=== PATIENT | female | born 1965 | race Caucasian/White ===

== ENCOUNTER 2022-02-25 21:34 | Emergency (ER) | payer BC, SELFPAY ==
[2022-02-25 21:35] VITALS: BP 148/91; PULSE 90; PULSE 97; RESP 16; TEMP 36.4; O2SAT 95; BMI 29.5
--- NOTE | 2022-02-25 22:35 | ED.VIS.LOWEX ---
HPI History of Present Illness Chief Complaint: Laceration Informant: patient Narrative Narrative: Patient had a piece of carolina hit her hill. She has a triangular-shaped skin tear across the anterior right hill. Tetanus is up-to-date. No active bleeding. This just happened this evening. Dressing made it better nothing makes it worse. No other injury. PFSH PFSH Allergy/AdvReac Type Severity Reaction Status Date / Time No Known Allergies Allergy Verified 02/25/22 21:42 Social History Smoking Status: Never smoker ROS ROS ED Gastrointestinal Gastrointestinal: Denies nausea or vomiting Integumentary Reports Abrasions and other Details: See HPI Neurologic Neurologic: Denies paresthesias or weakness Hematologic/Lymphatic Hematologic/Lymphatic: Denies easy bleeding or easy bruising Allergic/Immunologic Allergic/Immunologic ED: Denies urticaria EXAM Physical Exam Const Vital Signs: 02/25/22 21:35 02/25/22 21:35 Temperature 97.6 F L 97.6 F L Temperature Source Temporal Temporal Pulse Rate 90 97 Respiratory Rate 16 16 Blood Pressure 148/91 H 148/91 H Blood Pressure Mean 110 110 Pulse Ox 95 95 Oxygen Delivery Method Room Air Room Air Positive well nourished and well developed General Appearance ED: well developed HEENT Negative for trauma Resp normal respiratory effort Extremity Extremity Narrative: Patient has a V shaped skin tear on the right anterior hill. Total length of this is about 8 cm. But the skin is very thin at the edges. No active bleeding. Neuro Sensorium / Orientation: alert Psych mental status grossly normal Skin Skin Narrative: See above MDM MDM MDM Narrative Medical decision making narrative: Patient really has a skin tear to the hill. If this would be sutured, the edges would tear at each stitch most likely. I think this would worsen the outcome. We will irrigate this and clean it again. We will float the flap as close as we can to the edges and apply nonadherent bacitracin type dressing. Discharge Plan Triage Chief Complaint: Laceration ED Provider: Ted Machado Dx/Rx/DC Orders Clinical Impression: Skin tear of right lower leg without complication Instructions: ED Skin Avulsion Primary Care Provider: Care Physician,No Primary Referrals: Rajesh Laura MD [Med Staff - Active Staff] - 1 Week if not improving Care Physician,No Primary [Primary Care Provider] - Disposition Disposition: Home, Self Care
[2022-02-25 23:21] VITALS: BP 132/88; PULSE 78; RESP 16; O2SAT 97
== END 2022-02-25 23:24 | disposition home or self-care (01) ==
PROVIDERS: Emergency Provider Emergency Medicine; Visit Provider Emergency Medicine
DX: S81.811A Laceration without foreign body, right lower leg, initial encounter (principal); W26.8XXA Contact with other sharp object(s), not elsewhere classified, initial encounter
CPT/HCPCS: 99282

== ENCOUNTER 2022-03-11 10:39 | Emergency (ER) | payer BC, SELFPAY ==
[2022-03-11 10:42] VITALS: BP 148/82; PULSE 86; RESP 17; TEMP 37.2; O2SAT 95; BMI 31.8
--- NOTE | 2022-03-11 11:03 | EX.ED.DYSGE1 ---
HPI <SHRUTHI Banks - Last Filed: 03/11/22 12:25> History of Present Illness Chief Complaint: Wound Narrative Narrative: 56-year-old female has a skin tear on her right hill from a piece of carolina that struck her leg on February 25. She was seen here and it was dressed with bacitracin. Over the last 4 days it become red, painful, and had odorous drainage. No fever or chills. She is not diabetic. PFSH <SHRUTHI Banks - Last Filed: 03/11/22 12:25> [facility] Medical History (Updated 03/11/22 @ 12:[address] Bernabe Damico MD) Asthma Home Medications clindamycin HCl 150 mg capsule 450 mg PO TID 7 days #63 caps 03/11/22 [Rx Last Taken Unknown] Allergy/AdvReac Type Severity Reaction Status Date / Time No Known Allergies Allergy Verified 02/25/22 21:42 Social History Smoking Status: Never smoker ROS <SHRUTHI Banks - Last Filed: 03/11/22 12:25> ROS ED ROS Narrative Constitutional: Negative for fever, chills, malaise. Eyes: Negative for visual change. ENT: Negative for sore throat, ear pain, rhinorrhea. CVS: Negative for palpitations, chest pain, syncope. Respiratory: Negative for shortness of breath, cough, orthopnea. GI: Negative for abdominal pain, nausea, vomiting, diarrhea, constipation, melena, hematochezia. : Negative for dysuria, hematuria or frequency. Neuro: Negative for headache, motor/sensory dysfunction. Skin: Negative for rash, abscess, or wound. Musc: Negative for joint pain, swelling, trauma. Heme: Negative for easy bruising, bleeding, lymphadenopathy. EXAM <SHRUTHI Banks Last Filed: 03/11/22 12:25> Physical Exam Narrative Exam Narrative: CONST: Patient sitting in no acute distress. EYES: Normal inspection. ENT: Normal inspection, moist mucous membranes. NECK: Normal inspection. RESP: No respiratory distress, CTAB. CVS: Regular rate and rhythm, no murmur, no gallop. SKIN: 5 cm triangular-shaped skin tear right lower hill with purulent drainage and surrounding erythema. No fluctuance or expressible drainage with palpation. EXTREMITIES: Normal appearance, full ROM, 2+ DP pulses. NEURO: Oriented x4. PSYCH: Normal affect. Const Vital Signs: 03/11/22 10:42 Temperature 98.9 F Temperature Source Oral Pulse Rate 86 Respiratory Rate 17 Blood Pressure 148/82 H Blood Pressure Mean 104 Pulse Ox 95 Oxygen Delivery Method Room Air <Dr. Bernabe Damico MD - Last Filed: 03/11/22 12:50> Physical Exam Const Vital Signs: 03/11/22 10:42 Temperature 98.9 F Temperature Source Oral Pulse Rate 86 Respiratory Rate 17 Blood Pressure 148/82 H Blood Pressure Mean 104 Pulse Ox 95 Oxygen Delivery Method Room Air MDM <SHRUTHI Banks - Last Filed: 03/11/22 12:25> [facility] Narrative Medical decision making narrative: Patient sustained a skin tear to her right hill 2 weeks ago. Over the last 4 days it became infected. There is a 5 cm skin tear with some purulent foul-smelling drainage and surrounding erythema. There is no expressible drainage or indication for I&D. Extremity is neurovascularly intact. X-rays negative. She will be started on clindamycin and referred to the wound center. Return if symptoms worsen. Radiography Diagnostic Testing: Clinical Impression(s) from Imaging Studies Tibia/Fibula X-Ray 03/11/22 11:48 IMPRESSION: No evidence of osteomyelitis. Electronically Signed: Mirta Koehler MD at 12:03 EDT , ED attending interpretation of right tibia/fibula shows no fracture or dislocation, no evidence of osteomyelitis. <Dr. Bernabe Damico MD - Last Filed: 03/11/22 12:50> [facility] Radiography Diagnostic Testing: Clinical Impression(s) from Imaging Studies Tibia/Fibula X-Ray 03/11/22 11:48 IMPRESSION: No evidence of osteomyelitis. Electronically Signed: Mirta Koehler MD at 12:03 EDT , Treatment and Re-Evaluation Narrative: Seen and evaluated independently and in conjunction with physician nurse assistant. Agree with notes above unless documented otherwise. By the looks of the pictures patient took, this appeared to be a skin tear 2 weeks ago. It appears to have gradually become more red and swollen and painful suggesting infection. There is no abscess at this time. It is still healing by secondary intent. There were a lot of Steri-Strips across it which are now removed. We discussed dressing changes, antibiotics, outpatient follow-up with the wound center. I do not see anything that appears to need debridement at this time. Discharge Plan Triage Chief Complaint: Wound ED Midlevel Provider: Simona [place] ED Provider: Bernabe Damico Dx/Rx/DC Orders Clinical Impression: Unspecified open wound, right lower leg, subsequent encounter, Cellulitis of right anterior lower leg Instructions: ED Wound Check (Infection) Prescriptions: New clindamycin HCl 150 mg capsule 450 mg PO TID 7 Days Qty: 63 0RF Primary Care Provider: Eliane Anand,Out of Referrals: Eliane Anand,Out of [Primary Care Provider] - Center,Wound [Non-Staff] - Activity Restrictions/Additional Instructions: Take the antibiotics and keep clean and dry. I would not put the Steri-Strips on it. I would put bacitracin and a nonstick bandage. Call the wound center for follow-up. Disposition Disposition: Home, Self Care
--- NOTE | 2022-03-11 11:48 | RAD_ITS ---
STUDY: X-RAY - RIGHT TIBIA AND FIBULA REASON FOR EXAM: Female, 56 years old. Right leg wound TECHNIQUE: 2 view(s) of the tibia and fibula were obtained. COMPARISON: None. FINDINGS: Normal visualized tibia. Normal visualized fibula. There is a soft tissue defect ventral to the mid tibia consistent with known wound. RAD/Tibia & Fibula 2 Views IMPRESSION: No evidence of osteomyelitis. Electronically Signed: Mirta Koehler MD at 12:03 EDT ,
[2022-03-11] MEDS: Clindamycin HCl 150 MG Capsule 450 MG PO (12:55)
== END 2022-03-11 12:58 | disposition home or self-care (01) ==
PROVIDERS: Emergency Provider Emergency Medicine; Visit Provider Emergency Medicine
DX: S81.801A Unspecified open wound, right lower leg, initial encounter (principal); W22.8XXA Striking against or struck by other objects, initial encounter; L03.115 Cellulitis of right lower limb
CPT/HCPCS: 73590; 99283

== ENCOUNTER 2022-03-18 07:49 | Outpatient (RCR) | payer BC, SELFPAY ==
[2022-03-18 08:08] VITALS: BP 131/83; PULSE 77; RESP 18; TEMP 36.3
--- NOTE | 2022-03-18 10:55 | PCM.WC.HP ---
History of Present Illness Date of Service: 03/18/22 Chief Complaint: chronic wound right hill s/p traumatic skin tear History of Wound: Hilda is a pleasant 56 yo woman that presents to the wound healing center for evaluation and treatment of a nonhealing wound of her right hill. She struck her leg against a piece of [place]ol[place] and this gave her a triangular tear of her skin of her right hill on February 25, 2022. She was seen at the ER and the skin flap was approximated as best as possible to the edges and steri-stripped as stitches were not likely to hold or be helpful. She returned to the ER on 03/11/22 due to increased pain and erythema with steristrips in place and purulent drainage. ER physician removed steristrips and she was started on Clindamycin and has been dressing the wound with bacitracin and Telfa dressings. The ER referred her to the wound center for further treatment. She has recently moved from [place] to [place] and does not currently have a PCP in this area yet. 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 She does not take any medications currently. She denies fever, chills, increased drainage, erythema. Hisory difficult due to her hearing impairment. [facility] Medical History Asthma Home Medications clindamycin HCl 150 mg capsule 450 mg PO TID 7 days #63 caps 03/11/22 [Rx Last Taken Unknown] Allergy/AdvReac Type Severity Reaction Status Date / Time No Known Allergies Allergy Verified 02/25/22 21:42 Social History Smoking Status: Never smoker ROS Constitutional Constitutional: Denies chills, fatigue or fever(s) Eyes Eyes: Denies blurry vision, change in vision or loss of vision ENT HEENT: Denies dysphagia, hearing loss or sore throat Cardiovascular Cardiovascular: Denies chest pain, edema or palpitations Respiratory/Chest Respiratory/Chest: Denies dry cough, dyspnea, dyspnea on exertion, productive cough or wheezing Gastrointestinal Gastrointestinal: Denies diarrhea, nausea or vomiting Genitourinary Genitourinary: Denies dysuria or polyuria Musculoskeletal Musculoskeletal: Denies arthralgias, joint stiffness or muscle weakness Integumentary Integumentary: Reports erythema and wounds Neurologic Neurologic: Denies dizziness, memory loss or weakness Psychiatric Psychiatric: Denies homicidal ideation or suicidal ideation Endocrine Endocrinology: Denies polydipsia, polyphagia or polyuria Hematologic/Lymphatic Hematologic/Lymphatic: Denies easy bleeding or easy bruising Allergic/Immunologic Allergic/Immunologic: Denies throat swelling, tongue swelling or urticaria Vital Signs Vital Signs Vital Signs: 03/18/22 08:08 Temperature 97.4 F L Temperature Source Temporal Pulse Rate 77 Respiratory Rate 18 Blood Pressure 131/83 H Blood Pressure Mean 99 Blood Pressure Source Monitor Physical Exam Const alert, oriented x3 and no apparent distress General Appearance: cooperative and comfortable HEENT normocephalic and head/scalp atraumatic Resp normal respiratory effort Effort and Inspection: able to speak in complete sentences Cardio regular rate and regular rhythm Skin Wounds: wounds noted Wound Narrative: as in clinical panel Psych mental status grossly normal, thought process normal, cooperative and affect normal Debridement Note Debridement Note Wound debrided: right hill Laterality: Right Type of Debridement: Excisional debridement Anesthesia Used: 4% Lidocaine Solution and 5% Lidocaine Gel Depth: Down to and including healthy tissue and in the subcutaneous layer Percentage of wound debrided: 100 Instrument Used: #15 blade and Forceps Tissue Removed: Yellow slough, devitalized tissue Severity: Fat Layer Exposed Amount of bleeding with debridement: Mild Bleeding Controlled with: Compression and gauze Patient tolerated procedure: Patient tolerated procedure well Post-Debridement Measurements and Additional Note: Post-Debridement Measurements/Treatment - Nurse 1 - General Ulcer Assessment Start: 03/18/22 07:50 Freq: Status: Active Protocol: TAMMY.ALIDA Activity Type Activity Date Activity User E-sign Co-sign Detail Recorded Client Recorded Date Recorded By Document 03/18/22 08:08 [id number] 03/18/22 08:18 ARIAS 03/18/22 08:08 - Today's Visit Information Type of service Initial Visit Arrival Mode Ambulatory Transfer Assistance None Patient Identification Verified (Name & Yes ) Patient Requires Transmission-Based No Precautions Vital Signs Temperature (97.8 F-99.1 F) 97.4 F L Temperature Source Temporal Pulse Rate (60-100) 77 Pulse Location Monitor Respiratory Rate (12-18) 18 Respiratory rate source Observation Blood Pressure (90/60-120/80) 131/83 H Blood Pressure Mean 99 Source Monitor History Since Last Visit- (Skip if this is Patient's initial visit) Have you been in the hospital since your No last visit? Pain Scale: 0-10 Numeric Is Patient Pain Free? 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 Able to Read Yes Able to Write Yes Communication Tools Lip Movement/ Reading Right Hearing Abillity Deaf Left Hearing Abillity Deaf Visual Assistive Devices Glasses Teaching Assessment Preferences Verbal,Written, Demonstration Barriers to Learning None Readiness To Learn Good Willingness to Engage in Self Management Med Activies Readiness to Engage in Self Management Med Activities Anxiety Level Calm Cooperation Cooperative Perception Coherent Interest in Health Problem Asks Questions Education Importance Acknowledges Need Does Patient Smoke tobacco or other No substances Smoking Status Never smoker Is Patient Diabetic No Functional Assessment Recent Decline in Ability to Perform Denies Any Declines Assistive Device With Patient N/A Teaching: Wound Center Dressing Your Wound -Person Taught Patient Discharge Instructions -Person Taught Patient *Welcome to the Wound Center -Person Taught Patient (a) 1 - _ WC - Nurse 1 - General Ulcer Measurement Start: 03/18/22 07:50 Freq: Status: Active Protocol: Activity Type Activity Date Activity User E-sign Co-sign Detail Recorded Client Recorded Date Recorded By Document 03/18/22 08:08 [id number] 03/18/22 08:18 DL 03/18/22 08:08 Wound Center Nurse 1 #1 R Hill -Current Size (cm) - Length 5 -Current Size (cm) - Width 4 -Current Size (cm) - Depth 0.3 -Total Square Cm 20 -Photo Taken Yes -Exudate Amt Large -Exudate Type Serosanguineous -Wound Margin Distinct, Outline Attached -Granulation Amt Small (1-33%) -Granulation Quality [place] -Necrosis Amt Large (67-100%) -Necrotic Tissue Type Adherent Slough -Structure Exposed N/A -Texture (Danyell-wound Skin Appearance) Localized Edema ,Scarring -Moisture (Danyell-wound Skin Appearance) No Abnormality -Color (Danyell-wound Skin Appearance) Erythema -Temperature (Danyell-wound Skin No Abnormality Appearance) (Pt Warm) -Tenderness on Palpation (Danyell-wound No Skin Appearance) -Ulcer Cleansing Soap and Water -Foul Odor after Cleansing No -Anesthetic Used 5% Lidocaine Gel Right Calf (cm) 37 Right Ankle (cm) 22.5 Left Calf (cm) 35.5 Left Ankle (cm) 22.2 WC - Nurse 2 - General Ulcer CM Notes Start: 03/18/22 07:50 Freq: Status: Active Protocol: Activity Type Activity Date Activity User E-sign Co-sign Detail Recorded Client Recorded Date Recorded By Document 03/18/22 08:41 MW [id number] 03/18/22 08:51 MW 03/18/22 08:41 Wound Center Nurse 2 #1 R Hill -Time 08:41 -Correct Patient Yes -Correct Side, Site, Position Yes -Correct Procedure Yes -Procedure Performed Yes -Type of Procedure Debridement -Clinical Debridement Subcutaneous -Tissue Removed Subcutaneous -Post Debridement (cm) - Length 4.9 -Post Debridement (cm) - Width 4.0 -Post Debridement (cm) - Depth 0.3 -Total Square (Post) (cm) 19.60 -Area of Debridement (cm) - Length 4.9 -Area of Debridement (cm) - Width 4.0 -Total Square (Area) (cm) 19.60 -Tunneling No -Undermining/Tunneling No -Circular Undermining No -Wound/Ulcer Outcome Not Healed -Ulcer Cleansing Rinsed/ Irrigated with Saline -Foul Odor after Cleansing No -Bioengineered Tissue No -Bleeding Controlled with Pressure -Treatment Response Procedure Tolerated Well -Offloading No -Debridement - Subq, 1st 20sq cm Yes Pain Scale: 0-10 Numeric Is Patient Pain Free? Yes WC - Nurse 3 - General Ulcer D/C NN Start: 03/18/22 07:50 Freq: Status: Active Protocol: Activity Type Activity Date Activity User E-sign Co-sign Detail Recorded Client Recorded Date Recorded By Document 03/18/22 09:02 MW [id number] 03/18/22 09:03 MW 03/18/22 09:02 Wound Care Nurse 3 #1 R Hill -Ulcer Cleansing Rinsed/ Irrigated with Saline -Foul Odor after Cleansing No -Negative Pressure Wound Therapy N/A -Primary Dressing Applied Aquacel AG 4x4 -Primary Dressing Covered/Secured with Dry Gauze & Roll Gauze, Secured with Tape -Aquacel AG 4x4 1 Treatment Response Procedure Tolerated Well Pain Scale: 0-10 Numeric Is Patient Pain Free? Yes Teaching: Wound Center Dressing Your Wound -Person Taught Patient -Teaching Method Discussion, Demonstration -Response to teaching Verbalize understanding WC - Visit Discharge Discharge Condition Stable Ambulatory Status Ambulatory Transportation Private Auto Accompanied by self Medication Reconcilliation completed & No provided to patient/care provider Clinical Summary of Care Provided Yes Assessment/Plan Assessment/Plan (1) Cellulitis of right anterior lower leg: CODE(S): L03.115 - Cellulitis of right lower limb (2) Hearing impairment: CODE(S): H91.90 - Unspecified hearing loss, unspecified ear (3) Unspecified open wound, right lower leg, sequela: CODE(S): S81.801S - Unspecified open wound, right lower leg, sequela (4) Delayed healing of traumatic wound: CODE(S): T14.8XXD - Other injury of unspecified body region, subsequent encounter PLAN: Plan Debridement performed today in clinic as annotated above. At home wound-care instructions: Will dress her wound with Aquacel Ag moistened, covered with gauze and wrapped with rolled gauze and secured with tape. Keep dressing clean and dry. Compression: Tubigrip compression in single layer for mild edema. Off-loading: The patient was instructed to avoid pressure and friction on the affected areas. Reposition every 2 hours at minimum. Avoid prolonged standing and/or dangling of legs. When seated, feet should be elevated at chest level. Frequent ambulation is encouraged. Diet: Patient encouraged to increase protein intake while taking caution to avoid high carbohydrate and/or sugar intake. Labs/cultures/imaging: Wound culture taken today. Will treat based on results. Follow-up: Return in 1 week for wound care follow up. Return sooner or report to the emergency room should symptoms worsen, or new symptoms arise. Note: [employer]roll speech recognition irish moss operator software was used to create portions of this document. Sound-alike and misspelled words, as well as other irish moss operator errors may be contained in the documentation.
== END 2022-03-21 23:59 | disposition home or self-care (01) ==
LOC: WC 07:49
PROVIDERS: Visit Provider Family Medicine
DX: S81.811A Laceration without foreign body, right lower leg, initial encounter (principal); L03.115 Cellulitis of right lower limb; W22.09XA Striking against other stationary object, initial encounter; H91.90 Unspecified hearing loss, unspecified ear
CPT/HCPCS: 11042; 87070; 87075; 87077; 87186; 87205; 99203; G0463

== ENCOUNTER 2022-04-08 10:00 | Outpatient (RCR) | payer BC, SELFPAY ==
[2022-03-22 00:44] VITALS: BP 131/83; PULSE 77; RESP 18; TEMP 36.3
[2022-03-25 10:04] VITALS: BP 138/80; PULSE 86; RESP 18; TEMP 36.1
--- NOTE | 2022-03-25 12:05 | PN.PCM_ITS ---
History of Present Illness Date of Service: 03/25/22 Chief Complaint: chronic wound right hill s/p traumatic skin tear History of Wound: Hilda is a pleasant 56 yo woman that presents to the wound healing center for evaluation and treatment of a nonhealing wound of her right hill. She struck her leg against a piece of [place] and this gave her a triangular tear of her skin of her right hill on February 25, 2022. She was seen at the ER and the skin flap was approximated as best as possible to the edges and steri-stripped as stitches were not likely to hold or be helpful. She returned to the ER on 03/11/22 due to increased pain and erythema with steristrips in place and purulent drainage. ER physician removed steristrips and she was started on Clindamycin and has been dressing the wound with bacitracin and Telfa dressings. The ER referred her to the wound center for further treatment. She has recently moved from [place] to [place] and does not currently have a PCP in this area yet. 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 She does not take any medications currently. She denies fever, chills, increased drainage, erythema. History difficult due to her hearing impairment. Subjective Subjective Hilda is here to follow up for wound care. She tolerated treatment with Aquacel Ag but found that it did stick to her wound a little. She started antibiotic treatment for positive wound cultures yesterday. She is tolerating this well so far. She denies increased edema, drainage or pain, fever or chills. Objective Data Objective Data Vital Signs: Vital Signs Temp Pulse Resp BP 97 F L 86 18 138/80 H 03/25/22 10:04 03/25/22 10:04 03/25/22 10:04 03/25/22 10:04 Physical Exam Const alert, oriented x3 and no apparent distress General Appearance: cooperative and comfortable HEENT normocephalic and head/scalp atraumatic Resp normal respiratory effort Effort and Inspection: able to speak in complete sentences Cardio regular rate and regular rhythm Skin Wounds: wounds noted Wound Narrative: as in clinical panel Psych mental status grossly normal, thought process normal, cooperative and affect normal Debridement Note Debridement Note Wound debrided: right hlil Laterality: Right Type of Debridement: Excisional debridement Anesthesia Used: 4% Lidocaine Solution and 5% Lidocaine Gel Depth: Down to and including healthy tissue and in the subcutaneous layer Percentage of wound debrided: 100 Instrument Used: 7mm curette Tissue Removed: Yellow slough, devitalized tissue Severity: Fat Layer Exposed Amount of bleeding with debridement: Mild Bleeding Controlled with: Compression and gauze Patient tolerated procedure: Patient tolerated procedure well Post-Debridement Measurements and Additional Note: Post-Debridement Measurements/Treatment TAMMY - Nurse 1 - General Ulcer Assessment Start: 03/25/22 10:04 Freq: Status: Active Protocol: MARTHA Activity Type Activity Date Activity User E-sign Co-sign Detail Recorded Client Recorded Date Recorded By Document 03/25/22 10:04 FAHEEM [id number] 03/25/22 10:06 FAHEEM 03/25/22 10:04 TAMMY - Today's Visit Information Type of service Follow-up Visit (Physician/MINE UTILITY OPERATOR ) Arrival Mode Ambulatory Transfer Assistance None Patient Identification Verified (Name & Yes ) Patient Requires Transmission-Based No Precautions Vital Signs Temperature (97.8 F-99.1 F) 97 F L Temperature Source Temporal Pulse Rate (60-100) 86 Pulse Location Monitor Respiratory Rate (12-18) 18 Respiratory rate source Observation Blood Pressure (90/60-120/80) 138/80 H Blood Pressure Mean (mm Hg) 99 Source Monitor Position Semi-Fowlers Blood Pressure Location Left Arm History Since Last Visit- (Skip if this is Patient's initial visit) Have you changed medications since your No last visit? Any new allergies or adverse reactions No Had a fall/change in ADL's that may No increase risk of falls Signs or symptoms of abuse and/or No neglect since last visit Have you been in the hospital since your No last visit? Has dressing in place as prescribed Yes Has compression in place as prescribed Yes Has offloadiing in place as prescribed No Experienced any changes in pain level or No management Pain Scale: 0-10 Numeric Is Patient Pain Free? Yes TAMMY - Nurse 1 - General Ulcer Measurement Start: 03/25/22 10:04 Freq: Status: Active Protocol: Activity Type Activity Date Activity User E-sign Co-sign Detail Recorded Client Recorded Date Recorded By Document 03/25/22 10:04 FAHEEM [id number] 03/25/22 10:06 FAHEEM 03/25/22 10:04 Wound Center Nurse 1 #1 [place] -Combined with other wound No -Current Size (cm) - Length 4.1 -Current Size (cm) - Width 3.5 -Current Size (cm) - Depth 0.1 -Total Square Cm 14.35 -Photo Taken Yes -Tunneling No -Undermining/Tunneling No -Circular Undermining No -Exudate Amt Medium -Exudate Type Serosanguineous -Wound Margin Distinct, Outline Attached -Granulation Amt Medium (34-66%) -Granulation Quality [place] -Slough/Fibrin Yes -Necrosis Amt Medium (34-66%) -Necrotic Tissue Type Adherent Slough -Structure Exposed N/A -Texture (Danyell-wound Skin Appearance) Assessed -Moisture (Danyell-wound Skin Appearance) Assessed -Color (Danyell-wound Skin Appearance) Erythema -Temperature (Danyell-wound Skin No Abnormality Appearance) (Pt Warm) -Tenderness on Palpation (Danyell-wound No Skin Appearance) -Ulcer Cleansing Rinsed/ Irrigated with Saline -Foul Odor after Cleansing No -Anesthetic Used 4% Lidocaine Solution,5% Lidocaine Gel Lower Limb Edema Present Yes Right Calf (cm) 38.5 Right Ankle (cm) 23.2 WC - Nurse 2 - General Ulcer CM Notes Start: 03/25/22 10:04 Freq: Status: Active Protocol: Activity Type Activity Date Activity User E-sign Co-sign Detail Recorded Client Recorded Date Recorded By Document 03/25/22 10:12 MW [id number] 03/25/22 10:28 MW 03/25/22 10:12 Wound Center Nurse 2 #1 [place] -Time 10:13 -Correct Patient Yes -Correct Side, Site, Position Yes -Correct Procedure Yes -Procedure Performed Yes -Type of Procedure Debridement -Clinical Debridement Subcutaneous -Tissue Removed Subcutaneous -Post Debridement (cm) - Length 4.8 -Post Debridement (cm) - Width 3.5 -Post Debridement (cm) - Depth 0.3 -Total Square (Post) (cm) 16.80 -Area of Debridement (cm) - Length 4.8 -Area of Debridement (cm) - Width 3.5 -Total Square (Area) (cm) 16.80 -Tunneling No -Undermining/Tunneling No -Circular Undermining No -Wound/Ulcer Outcome Not Healed -Ulcer Cleansing Rinsed/ Irrigated with Saline -Foul Odor after Cleansing No -Bioengineered Tissue No -Bleeding Controlled with Pressure -Treatment Response Procedure Tolerated Well -Offloading No -Debridement - Subq, 1st 20sq cm Yes Pain Scale: 0-10 Numeric Is Patient Pain Free? Yes - Nurse 3 - General Ulcer D/C NN Start: 03/25/22 10:04 Freq: Status: Active Protocol: Activity Type Activity Date Activity User E-sign Co-sign Detail Recorded Client Recorded Date Recorded By Document 03/25/22 10:33 MW [id number] 03/25/22 10:34 MW 03/25/22 10:33 Wound Care Nurse 3 #1 R [place] -Ulcer Cleansing Rinsed/ Irrigated with Saline -Foul Odor after Cleansing No -Negative Pressure Wound Therapy N/A -Primary Dressing Applied Aquacel AG 4x4, NonAdherent Contact Layer -Primary Dressing Covered/Secured with Dry Gauze & Roll Gauze, Secured with Tape -Aquacel AG 4x4 1 Treatment Response Procedure Tolerated Well Pain Scale: 0-10 Numeric Is Patient Pain Free? Yes Teaching: Wound Center Dressing Your Wound -Person Taught Patient -Teaching Method Discussion -Response to teaching Verbalize understanding WC - Visit Discharge Discharge Condition Stable Ambulatory Status Ambulatory Transportation Private Auto Accompanied by self Medication Reconcilliation completed & No provided to patient/care provider Clinical Summary of Care Provided Yes Assessment/Plan Assessment/Plan (1) Cellulitis of right anterior lower leg: CODE(S): L03.115 - Cellulitis of right lower limb (2) Hearing impairment: CODE(S): H91.90 - Unspecified hearing loss, unspecified ear (3) Unspecified open wound, right lower leg, sequela: CODE(S): S81.801S - Unspecified open wound, right lower leg, sequela (4) Delayed healing of traumatic wound: CODE(S): T14.8XXD - Other injury of unspecified body region, subsequent encounter PLAN: Plan Debridement performed today in clinic as annotated above. At home wound-care instructions: Will dress her wound with Adaptic and Aquacel Ag, covered with gauze and wrapped with rolled gauze and secured with tape. Keep dressing clean and dry. Compression: Tubigrip compression in single layer for mild edema. Off-loading: The patient was instructed to avoid pressure and friction on the affected areas. Reposition every 2 hours at minimum. Avoid prolonged standing and/or dangling of legs. When seated, feet should be elevated at chest level. Frequent ambulation is encouraged. Diet: Patient encouraged to increase protein intake while taking caution to avoid high carbohydrate and/or sugar intake. Labs/cultures/imaging: Wound culture taken today. Will treat based on results. Follow-up: Return in 1 week for wound care follow up. Return sooner or report to the emergency room should symptoms worsen, or new symptoms arise. Note: [employer] speech recognition boat outfitting supervisor software was used to create portions of this document. Sound-alike and misspelled words, as well as other boat outfitting supervisor errors may be contained in the documentation.
[2022-04-01 10:22] VITALS: BP 137/71; PULSE 81; RESP 18; TEMP 36.3
--- NOTE | 2022-04-01 14:01 | PN.PCM_ITS ---
History of Present Illness Date of Service: 04/01/22 Chief Complaint: chronic wound right hill s/p traumatic skin tear History of Wound: Hilda is a pleasant 56 yo woman that presents to the wound healing center for evaluation and treatment of a nonhealing wound of her right hill. She struck her leg against a piece of [place] and this gave her a triangular tear of her skin of her right hill on February 25, 2022. She was seen at the ER and the skin flap was approximated as best as possible to the edges and steri-stripped as stitches were not likely to hold or be helpful. She returned to the ER on 03/11/22 due to increased pain and erythema with steristrips in place and purulent drainage. ER physician removed steristrips and she was started on Clindamycin and has been dressing the wound with bacitracin and Telfa dressings. The ER referred her to the wound center for further treatment. She has recently moved from [place] to [place] and does not currently have a PCP in this area yet. 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 She does not take any medications currently. She denies fever, chills, increased drainage, erythema. History difficult due to her hearing impairment. Subjective Subjective Hilda is here to follow up for wound care. She tolerated treatment with Aquacel Ag and adaptic. She denies increased edema, drainage or pain, fever or chills. Objective Data Objective Data Vital Signs: Vital Signs Temp Pulse Resp BP 97.3 F L 81 18 137/71 H 04/01/22 10:22 04/01/22 10:22 04/01/22 10:22 04/01/22 10:22 Physical Exam Const alert, oriented x3 and no apparent distress General Appearance: cooperative and comfortable HEENT normocephalic and head/scalp atraumatic Resp normal respiratory effort Effort and Inspection: able to speak in complete sentences Cardio regular rate and regular rhythm Skin Wounds: wounds noted Wound Narrative: as in clinical panel Psych mental status grossly normal, thought process normal, cooperative and affect normal Debridement Note Debridement Note Wound debrided: right hill Laterality: Right Type of Debridement: Excisional debridement Anesthesia Used: 4% Lidocaine Solution and 5% Lidocaine Gel Depth: Down to and including healthy tissue and in the subcutaneous layer Percentage of wound debrided: 100 Instrument Used: 7mm curette Tissue Removed: Yellow slough, devitalized tissue Severity: Fat Layer Exposed Amount of bleeding with debridement: Mild Bleeding Controlled with: Compression and gauze Patient tolerated procedure: Patient tolerated procedure well Post-Debridement Measurements and Additional Note: Post-Debridement Measurements/Treatment WC - Nurse 1 - General Ulcer Assessment Start: 03/25/22 10:04 Freq: Status: Active Protocol: MARTHA Activity Type Activity Date Activity User E-sign Co-sign Detail Recorded Client Recorded Date Recorded By Document 03/25/22 10:04 RB [id number] 03/25/22 10:06 RB Document 04/01/22 10:22 RB [id number] 04/01/22 10:24 RB 03/25/22 04/01/22 10:04 10:22 WC - Today's Visit Information Type of service Follow-up Visit Follow-up Visit (Physician/AIR INTELLIGENCE SPECIALIST (Physician/AIR INTELLIGENCE SPECIALIST ) ) Arrival Mode Ambulatory Ambulatory Transfer Assistance None None Patient Identification Verified (Name & Yes Yes ) Patient Requires Transmission-Based No No Precautions Vital Signs Temperature (97.8 F-99.1 F) 97 F L 97.3 F L Temperature Source Temporal Temporal Pulse Rate (60-100) 86 81 Pulse Location Monitor Monitor Respiratory Rate (12-18) 18 18 Respiratory rate source Observation Observation Blood Pressure (90/60-120/80) 138/80 H 137/71 H Blood Pressure Mean (mm Hg) 99 93 Source Monitor Monitor Position Semi-Fowlers Semi-Fowlers Blood Pressure Location Left Arm Left Arm History Since Last Visit- (Skip if this is Patient's initial visit) Have you changed medications since your No No last visit? Any new allergies or adverse reactions No No Had a fall/change in ADL's that may No No increase risk of falls Signs or symptoms of abuse and/or No No neglect since last visit Have you been in the hospital since your No No last visit? Has dressing in place as prescribed Yes Yes Has compression in place as prescribed Yes Yes Has offloadiing in place as prescribed No No Experienced any changes in pain level or No No management Pain Scale: 0-10 Numeric Is Patient Pain Free? Yes Yes TAMMY [place] Nurse 1 - General Ulcer Measurement Start: 03/25/22 10:04 Freq: Status: Active Protocol: Activity Type Activity Date Activity User E-sign Co-sign Detail Recorded Client Recorded Date Recorded By Document 03/25/22 10:04 RB [id number] 03/25/22 10:06 RB Document 04/01/22 10:22 RB [id number] 04/01/22 10:24 RB 03/25/22 04/01/22 10:04 10:22 Wound Center Nurse 1 #1 [place] -Combined with other wound No No -Current Size (cm) - Length 4.1 4.5 -Current Size (cm) - Width 3.5 2.7 -Current Size (cm) - Depth 0.1 0.2 -Total Square Cm 14.35 12.15 -Photo Taken Yes Yes -Tunneling No No -Undermining/Tunneling No No -Circular Undermining No No -Exudate Amt Medium Medium -Exudate Type Serosanguineous Serosanguineous -Wound Margin Distinct, Distinct, Outline Outline Attached Attached -Granulation Amt Medium (34-66%) Medium (34-66%) -Granulation Quality [place] -Slough/Fibrin Yes Yes -Necrosis Amt Medium (34-66%) Medium (34-66%) -Necrotic Tissue Type Adherent Slough Adherent Slough -Structure Exposed N/A N/A -Texture (Danyell-wound Skin Appearance) Assessed Assessed -Moisture (Danyell-wound Skin Appearance) Assessed Assessed -Color (Danyell-wound Skin Appearance) Erythema Assessed -Temperature (Danyell-wound Skin No Abnormality No Abnormality Appearance) (Pt Warm) (Pt Warm) -Tenderness on Palpation (Danyell-wound No No Skin Appearance) -Ulcer Cleansing Rinsed/ Wound Cleanser Irrigated with Saline -Foul Odor after Cleansing No No -Anesthetic Used 4% Lidocaine 5% Lidocaine Solution,5% Gel Lidocaine Gel Lower Limb Edema Present Yes Yes Right Calf (cm) 38.5 37.2 Right Ankle (cm) 23.2 22 WC - Nurse 2 - General Ulcer CM Notes Start: 03/25/22 10:04 Freq: Status: Active Protocol: Activity Type Activity Date Activity User E-sign Co-sign Detail Recorded Client Recorded Date Recorded By Document 03/25/22 10:12 MW [id number] 03/25/22 10:28 MW Document 04/01/22 10:50 MW [id number] 04/01/22 11:00 MW 03/25/22 04/01/22 10:12 10:50 Wound Center Nurse 2 #1 R [place] -Time 10:13 10:50 -Correct Patient Yes Yes -Correct Side, Site, Position Yes Yes -Correct Procedure Yes Yes -Procedure Performed Yes Yes -Type of Procedure Debridement Debridement -Clinical Debridement Subcutaneous Subcutaneous -Tissue Removed Subcutaneous Subcutaneous -Post Debridement (cm) - Length 4.8 4.5 -Post Debridement (cm) - Width 3.5 3.2 -Post Debridement (cm) - Depth 0.3 0.1 -Total Square (Post) (cm) 16.80 14.40 -Area of Debridement (cm) - Length 4.8 4.5 -Area of Debridement (cm) - Width 3.5 3.2 -Total Square (Area) (cm) 16.80 14.40 -Tunneling No No -Undermining/Tunneling No No -Circular Undermining No No -Wound/Ulcer Outcome Not Healed Not Healed -Ulcer Cleansing Rinsed/ Rinsed/ Irrigated with Irrigated with Saline Saline -Foul Odor after Cleansing No No -Bioengineered Tissue No No -Bleeding Controlled with Pressure Pressure -Treatment Response Procedure Procedure Tolerated Well Tolerated Well -Offloading No No -Debridement - Subq, 1st 20sq cm Yes Yes Pain Scale: 0-10 Numeric Is Patient Pain Free? Yes Yes - Nurse 3 - General Ulcer D/C NN Start: 03/25/22 10:04 Freq: Status: Active Protocol: Activity Type Activity Date Activity User E-sign Co-sign Detail Recorded Client Recorded Date Recorded By Document 03/25/22 10:33 MW [id number] 03/25/22 10:34 MW Document 04/01/22 11:01 MW [id number] 04/01/22 11:06 MW 03/25/22 04/01/22 10:33 11:01 Wound Care Nurse 3 #1 R Hill -Ulcer Cleansing Rinsed/ Rinsed/ Irrigated with Irrigated with Saline Saline -Foul Odor after Cleansing No No -Negative Pressure Wound Therapy N/A N/A -Primary Dressing Applied Aquacel AG 4x4, Fibracol Plus NonAdherent 4x4,NonAdherent Contact Layer Contact Layer -Primary Dressing Covered/Secured with Dry Gauze & Dry Gauze & Roll Gauze, Roll Gauze, Secured with Secured with Tape Tape -Aquacel AG 4x4 1 -Fibracol Plus 4x4 2 Treatment Response Procedure Procedure Tolerated Well Tolerated Well Pain Scale: 0-10 Numeric Is Patient Pain Free? Yes Yes Teaching: Wound Center Dressing Your Wound -Person Taught Patient Patient -Teaching Method Discussion Discussion, Demonstration -Response to teaching Verbalize Verbalize understanding understanding WC - Visit Discharge Discharge Condition Stable Stable Ambulatory Status Ambulatory Ambulatory Transportation Private Auto Private Auto Accompanied by self self Medication Reconcilliation completed & No No provided to patient/care provider Clinical Summary of Care Provided Yes Yes Assessment/Plan Assessment/Plan (1) Cellulitis of right anterior lower leg: CODE(S): L03.115 - Cellulitis of right lower limb (2) Hearing impairment: CODE(S): H91.90 - Unspecified hearing loss, unspecified ear (3) Unspecified open wound, right lower leg, sequela: CODE(S): S81.801S - Unspecified open wound, right lower leg, sequela (4) Delayed healing of traumatic wound: CODE(S): T14.8XXD - Other injury of unspecified body region, subsequent encounter PLAN: Plan Debridement performed today in clinic as annotated above. At home wound-care instructions: Will dress her wound with Adaptic and Fibracol, covered with gauze and wrapped with rolled gauze and secured with tape. Keep dressing clean and dry. Compression: Tubigrip compression in single layer for mild edema. Off-loading: The patient was instructed to avoid pressure and friction on the affected areas. Reposition every 2 hours at minimum. Avoid prolonged standing and/or dangling of legs. When seated, feet should be elevated at chest level. Frequent ambulation is encouraged. Diet: Patient encouraged to increase protein intake while taking caution to avoid high carbohydrate and/or sugar intake. Labs/cultures/imaging: Follow-up: Return in 1 week for wound care follow up. Return sooner or report to the emergency room should symptoms worsen, or new symptoms arise. Note: [employer] speech recognition directional driller software was used to create portions of this document. Sound-alike and misspelled words, as well as other directional driller errors may be contained in the documentation.
[2022-04-08 10:21] VITALS: BP 128/86; PULSE 80; RESP 18; TEMP 36.3
--- NOTE | 2022-04-08 12:52 | PCM.WC.PN ---
History of Present Illness Date of Service: 04/08/22 Chief Complaint: chronic wound right hill s/p traumatic skin tear History of Wound: Hilda is a pleasant 56 yo woman that presents to the wound healing center for evaluation and treatment of a nonhealing wound of her right hill. She struck her leg against a piece of [place] and this gave her a triangular tear of her skin of her right hill on February 25, 2022. She was seen at the ER and the skin flap was approximated as best as possible to the edges and steri-stripped as stitches were not likely to hold or be helpful. She returned to the ER on 03/11/22 due to increased pain and erythema with steristrips in place and purulent drainage. ER physician removed steristrips and she was started on Clindamycin and has been dressing the wound with bacitracin and Telfa dressings. The ER referred her to the wound center for further treatment. She has recently moved from [place] to [place] and does not currently have a PCP in this area yet. 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 She does not take any medications currently. She denies fever, chills, increased drainage, erythema. History difficult due to her hearing impairment. Subjective Subjective Hilda is here to follow up for wound care. She tolerated treatment with Fibracol and adaptic. She denies increased edema, drainage or pain, fever or chills. Objective Data Objective Data Vital Signs: Vital Signs Temp Pulse Resp BP 97.4 F L 80 18 128/86 H 04/08/22 10:21 04/08/22 10:21 04/08/22 10:21 04/08/22 10:21 Physical Exam Const alert, oriented x3 and no apparent distress General Appearance: cooperative and comfortable HEENT normocephalic and head/scalp atraumatic Resp normal respiratory effort Effort and Inspection: able to speak in complete sentences Cardio regular rate and regular rhythm Skin Wounds: wounds noted Wound Narrative: as in clinical panel Psych mental status grossly normal, thought process normal, cooperative and affect normal Debridement Note Debridement Note Wound debrided: right hill Laterality: Right Type of Debridement: Excisional debridement Anesthesia Used: 4% Lidocaine Solution and 5% Lidocaine Gel Depth: Down to and including healthy tissue and in the subcutaneous layer Percentage of wound debrided: 100 Instrument Used: 7mm curette Tissue Removed: Yellow slough, devitalized tissue Severity: Fat Layer Exposed Amount of bleeding with debridement: Mild Bleeding Controlled with: Compression and gauze Patient tolerated procedure: Patient tolerated procedure well Post-Debridement Measurements and Additional Note: Post-Debridement Measurements/Treatment - Nurse 1 - General Ulcer Assessment Start: 03/25/22 10:04 Freq: Status: Active Protocol: MARTHA Activity Type Activity Date Activity User E-sign Co-sign Detail Recorded Client Recorded Date Recorded By Document 03/25/22 10:04 RB [id number] 03/25/22 10:06 RB Document 04/01/22 10:22 RB [id number] 04/01/22 10:24 RB Document 04/08/22 10:21 RB [id number] 04/08/22 10:23 RB 03/25/22 04/01/22 04/08/22 10:04 10:22 10:21 - Today's Visit Information Type of service Follow-up Visit Follow-up Visit Follow-up Visit (Physician/DYE COLORIST FORMULATOR (Physician/DYE COLORIST FORMULATOR (Physician/DYE COLORIST FORMULATOR ) ) ) Arrival Mode Ambulatory Ambulatory Ambulatory Transfer Assistance None None None Patient Identification Verified (Name & Yes Yes Yes ) Patient Requires Transmission-Based No No No Precautions Vital Signs Temperature (97.8 F-99.1 F) 97 F L 97.3 F L 97.4 F L Temperature Source Temporal Temporal Temporal Pulse Rate (60-100) 86 81 80 Pulse Location Monitor Monitor Monitor Respiratory Rate (12-18) 18 18 18 Respiratory rate source Observation Observation Observation Blood Pressure (90/60-120/80) 138/80 H 137/71 H 128/86 H Blood Pressure Mean (mm Hg) 99 93 100 Source Monitor Monitor Monitor Position Semi-Fowlers Semi-Fowlers Semi-Fowlers Blood Pressure Location Left Arm Left Arm Left Arm History Since Last Visit- (Skip if this is Patient's initial visit) Have you changed medications since your No No No last visit? Any new allergies or adverse reactions No No No Had a fall/change in ADL's that may No No No increase risk of falls Signs or symptoms of abuse and/or No No No neglect since last visit Have you been in the hospital since your No No No last visit? Has dressing in place as prescribed Yes Yes Yes Has compression in place as prescribed Yes Yes Yes Has offloadiing in place as prescribed No No No Experienced any changes in pain level or No No No management Pain Scale: 0-10 Numeric Is Patient Pain Free? Yes Yes Yes WC - Nurse 1 - General Ulcer Measurement Start: 03/25/22 10:04 Freq: Status: Active Protocol: Activity Type Activity Date Activity User E-sign Co-sign Detail Recorded Client Recorded Date Recorded By Document 03/25/22 10:04 RB [id number] 03/25/22 10:06 RB Document 04/01/22 10:22 RB [id number] 04/01/22 10:24 RB Document 04/08/22 10:21 RB [id number] 04/08/22 10:23 RB 03/25/22 04/01/22 04/08/22 10:04 10:22 10:21 Wound Center Nurse 1 #1 R Hill -Combined with other wound No No No -Current Size (cm) - Length 4.1 4.5 4 -Current Size (cm) - Width 3.5 2.7 2.4 -Current Size (cm) - Depth 0.1 0.2 0.1 -Total Square Cm 14.35 12.15 9.6 -Photo Taken Yes Yes Yes -Tunneling No No No -Undermining/Tunneling No No No -Circular Undermining No No No -Exudate Amt Medium Medium Medium -Exudate Type Serosanguineous Serosanguineous Serosanguineous -Wound Margin Distinct, Distinct, Distinct, Outline Outline Outline Attached Attached Attached -Granulation Amt Medium (34-66%) Medium (34-66%) Large (67-100%) -Granulation Quality [place],Red -Slough/Fibrin Yes Yes Yes -Necrosis Amt Medium (34-66%) Medium (34-66%) Small (1-33%) -Necrotic Tissue Type Adherent Slough Adherent Slough Adherent Slough -Structure Exposed N/A N/A N/A -Texture (Danyell-wound Skin Appearance) Assessed Assessed Assessed -Moisture (Danyell-wound Skin Appearance) Assessed Assessed Assessed -Color (Danyell-wound Skin Appearance) Erythema Assessed Assessed -Temperature (Danyell-wound Skin No Abnormality No Abnormality No Abnormality Appearance) (Pt Warm) (Pt Warm) (Pt Warm) -Tenderness on Palpation (Danyell-wound No No No Skin Appearance) -Ulcer Cleansing Rinsed/ Wound Cleanser Wound Cleanser Irrigated with Saline -Foul Odor after Cleansing No No No -Anesthetic Used 4% Lidocaine 5% Lidocaine 5% Lidocaine Solution,5% Gel Gel Lidocaine Gel Lower Limb Edema Present Yes Yes Yes Right Calf (cm) 38.5 37.2 38 Right Ankle (cm) 23.2 22 21.7 WC - Nurse 2 - General Ulcer CM Notes Start: 03/25/22 10:04 Freq: Status: Active Protocol: Activity Type Activity Date Activity User E-sign Co-sign Detail Recorded Client Recorded Date Recorded By Document 03/25/22 10:12 MW [id number] 03/25/22 10:28 MW Document 04/01/22 10:50 MW [id number] 04/01/22 11:00 MW Document 04/08/22 10:47 MW [id number] 04/08/22 10:58 MW 03/25/22 04/01/22 04/08/22 10:12 10:50 10:47 Wound Center Nurse 2 #1 R Hill -Time 10:13 10:50 10:47 -Correct Patient Yes Yes Yes -Correct Side, Site, Position Yes Yes Yes -Correct Procedure Yes Yes Yes -Procedure Performed Yes Yes Yes -Type of Procedure Debridement Debridement Debridement -Clinical Debridement Subcutaneous Subcutaneous Subcutaneous -Tissue Removed Subcutaneous Subcutaneous Subcutaneous -Post Debridement (cm) - Length 4.8 4.5 4.2 -Post Debridement (cm) - Width 3.5 3.2 2.1 -Post Debridement (cm) - Depth 0.3 0.1 0.1 -Total Square (Post) (cm) 16.80 14.40 8.82 -Area of Debridement (cm) - Length 4.8 4.5 4.2 -Area of Debridement (cm) - Width 3.5 3.2 2.1 -Total Square (Area) (cm) 16.80 14.40 8.82 -Tunneling No No No -Undermining/Tunneling No No No -Circular Undermining No No No -Wound/Ulcer Outcome Not Healed Not Healed Not Healed -Ulcer Cleansing Rinsed/ Rinsed/ Rinsed/ Irrigated with Irrigated with Irrigated with Saline Saline Saline -Foul Odor after Cleansing No No No -Bioengineered Tissue No No No -Bleeding Controlled with Pressure Pressure Pressure -Treatment Response Procedure Procedure Procedure Tolerated Well Tolerated Well Tolerated Well -Offloading No No No -Debridement - Subq, 1st 20sq cm Yes Yes Yes Pain Scale: 0-10 Numeric Is Patient Pain Free? Yes Yes Yes WC - Nurse 3 - General Ulcer D/C NN Start: 03/25/22 10:04 Freq: Status: Active Protocol: Activity Type Activity Date Activity User E-sign Co-sign Detail Recorded Client Recorded Date Recorded By Document 03/25/22 10:33 MW [id number] 03/25/22 10:34 MW Document 04/01/22 11:01 MW [id number] 04/01/22 11:06 MW Document 04/08/22 11:09 MW [id number] 04/08/22 11:10 MW 03/25/22 04/01/22 04/08/22 10:33 11:01 11:09 Wound Care Nurse 3 #1 R Hill -Ulcer Cleansing Rinsed/ Rinsed/ Rinsed/ Irrigated with Irrigated with Irrigated with Saline Saline Saline -Foul Odor after Cleansing No No No -Negative Pressure Wound Therapy N/A N/A N/A -Primary Dressing Applied Aquacel AG 4x4, Fibracol Plus C Hydrogel ($), NonAdherent 4x4,NonAdherent NonAdherent Contact Layer Contact Layer Contact Layer -Primary Dressing Covered/Secured with Dry Gauze & Dry Gauze & Dry Gauze & Roll Gauze, Roll Gauze, Roll Gauze, Secured with Secured with Secured with Tape Tape Tape -Aquacel AG 4x4 1 -Fibracol Plus 4x4 2 Treatment Response Procedure Procedure Procedure Tolerated Well Tolerated Well Tolerated Well Pain Scale: 0-10 Numeric Is Patient Pain Free? Yes Yes Yes Teaching: Wound Center Dressing Your Wound -Person Taught Patient Patient Patient -Teaching Method Discussion Discussion, Discussion Demonstration -Response to teaching Verbalize Verbalize Verbalize understanding understanding understanding WC - Visit Discharge Discharge Condition Stable Stable Stable Ambulatory Status Ambulatory Ambulatory Ambulatory Transportation Private Auto Private Auto Private Auto Accompanied by self self self Medication Reconcilliation completed & No No No provided to patient/care provider Clinical Summary of Care Provided Yes Yes Yes Assessment/Plan Assessment/Plan (1) Cellulitis of right anterior lower leg: CODE(S): L03.115 - Cellulitis of right lower limb (2) Hearing impairment: CODE(S): H91.90 - Unspecified hearing loss, unspecified ear (3) Unspecified open wound, right lower leg, sequela: CODE(S): S81.801S - Unspecified open wound, right lower leg, sequela (4) Delayed healing of traumatic wound: CODE(S): T14.8XXD - Other injury of unspecified body region, subsequent encounter PLAN: Plan Debridement performed today in clinic as annotated above. At home wound-care instructions: Will dress her wound with Adaptic and hydrogel daily to every other day, cover with gauze and wrapped with rolled gauze and secured with tape. Keep dressing clean and dry. Compression: Tubigrip compression in single layer for mild edema. Off-loading: The patient was instructed to avoid pressure and friction on the affected areas. Reposition every 2 hours at minimum. Avoid prolonged standing and/or dangling of legs. When seated, feet should be elevated at chest level. Frequent ambulation is encouraged. Diet: Patient encouraged to increase protein intake while taking caution to avoid high carbohydrate and/or sugar intake. Labs/cultures/imaging: Follow-up: Return in 2 weeks for wound care follow up. Return sooner or report to the emergency room should symptoms worsen, or new symptoms arise. Note: [employer] speech recognition senior mechanical design engineer software was used to create portions of this document. Sound-alike and misspelled words, as well as other senior mechanical design engineer errors may be contained in the documentation.
== END 2022-04-20 23:59 | disposition home or self-care (01) ==
LOC: WC 10:00
PROVIDERS: Visit Provider Family Medicine
DX: S81.811D Laceration without foreign body, right lower leg, subsequent encounter (principal); L03.115 Cellulitis of right lower limb; W22.8XXD Striking against or struck by other objects, subsequent encounter; H91.90 Unspecified hearing loss, unspecified ear
CPT/HCPCS: 11042

== ENCOUNTER 2022-04-18 11:02 | Emergency (ER) | payer BC, SELFPAY ==
[2022-04-18 11:10] VITALS: BP 127/88; PULSE 80; RESP 18; TEMP 36.6; O2SAT 97; BMI 31.4
--- NOTE | 2022-04-18 11:24 | ED.RN ---
NETWORK OPERATIONS MANAGER WITH DR BLAKELY, THIS NURSE NAD MEDIC TO EVAL, EXPLAIN PLAN OF CARE.
[2022-04-18 11:28] VITALS: O2SAT 96
--- NOTE | 2022-04-18 11:45 | RAD_ITS ---
STUDY: X-RAY CHEST REASON FOR EXAM: Female, 56 years old. 3 day history of shortness of breath and cough. TECHNIQUE: PA and lateral views of the chest. COMPARISON: None. FINDINGS: There is hyperinflation of the lungs consistent with chronic obstructive lung disease (COPD). Mild degree of increased markings in the lingular segment of the left upper lobe. Follow-up recommended. There is no demonstrated pleural abnormality. Normal size heart. Normal mediastinum and cyril. Normal visualized pulmonary arteries. There is atherosclerotic tortuosity of the aortic arch and descending thoracic aorta. There is demineralization of the osseous structures. Normal visualized ribs, clavicles, and shoulders. There is no demonstrated abnormality of the visualized soft tissue structures of the upper abdomen. RAD/Chest PA and Lateral IMPRESSION: Hyperinflation. Mild degree of increased markings in the lingular segment of the left upper lobe. Follow-up is recommended. Electronically Signed: Brian Yeung MD at 12:05 EST ,
[2022-04-18 11:53] VITALS: PULSE 96; RESP 20
[2022-04-18] MEDS: Ondansetron ODT 4 MG Tablet PO (11:53)
[2022-04-18] MEDS: Ipratropium/Albuterol Sulfate 3 ML AMPUL.NEB INHALATION (11:53)
[2022-04-18] MEDS: predniSONE 20 MG Tablet 60 MG PO (11:53)
[2022-04-18] MEDS: Albuterol 2.5 MG/3 ML VIAL.NEB. INHALATION ×2 (11:53→14:53)
--- NOTE | 2022-04-18 11:53 | ED.VIS.DYS ---
HPI History of Present Illness Chief Complaint: Shortness of Breath Informant: patient Narrative Narrative: History is obtained through patient who can read lips but also through a advertising inserter. She has had about 4 or 5 days of a cough. She has brought up a tiny amount of clear sputum. No hemoptysis. No chest pain. Possible low-grade fevers. She has felt a little bit decreased energy. No myalgias. She did have some runny nose and congestion that started this. She has a history of asthma. She states she cannot hear but she feels a sensation as though she is likely wheezing. She has been on prednisone before but it has been years. She gets Xolair shots twice a month. She is also on inhalers. She is no longer on clindamycin for her right hill injury that is improving. [facility] Medical History Asthma Home Medications clindamycin HCl 150 mg capsule 450 mg PO TID 7 days #63 caps 03/11/22 [Rx Last Taken Unknown] albuterol sulfate 90 mcg/actuation aerosol inhaler (Ventolin HFA) 2 puff inhalation Q4H PRN PRN Wheezing ##1 04/18/22 [Rx Last Taken Unknown] budesonide-formoterol HFA 160 mcg-4.5 mcg/actuation aerosol inhaler 1 puff inhalation BID 04/18/22 [History Last Taken Unknown] cetirizine 10 mg tablet 10 mg PO DAILY 04/18/22 [History Last Taken Unknown] omalizumab 150 mg subcutaneous solution (Xolair) 150 mg subcut QMONTH 04/18/22 [History Last Taken Unknown] prednisone 20 mg tablet 60 mg PO DAILY #15 tabs 04/18/22 [Rx Last Taken Unknown] Allergy/AdvReac Type Severity Reaction Status Date / Time No Known Allergies Allergy Verified 04/18/22 11:12 Social History Smoking Status: Never smoker ROS ROS ED Constitutional Constitutional ED: Reports fever(s); Denies chills Eyes Eyes: Denies change in vision ENT ENT ED: Reports rhinorrhea; Denies ear pain or sore throat Cardiovascular Cardiovascular: Denies chest pain or palpitations Respiratory/Chest Respiratory/Chest: Reports cough and sputum; Denies dyspnea Gastrointestinal Gastrointestinal: Denies abdominal pain, nausea or vomiting Genitourinary Genitourinary ED: Denies dysuria Musculoskeletal Musculoskeletal: Denies arthralgias or myalgias Integumentary Denies rash Neurologic Neurologic: Denies headache(s) Endocrine Endocrinology: Denies polydipsia or polyuria Hematologic/Lymphatic Hematologic/Lymphatic: Denies easy bleeding or easy bruising Allergic/Immunologic Allergic/Immunologic ED: Denies mouth swelling, tongue swelling or urticaria EXAM Physical Exam Const Vital Signs: 04/18/22 11:10 04/18/22 11:28 04/18/22 11:53 Temperature 97.8 F Temperature Source Temporal Pulse Rate 80 96 Respiratory Rate 18 20 H Respiratory Effort Short of Breath Respiratory Depth Normal Respiratory Pattern Normal Normal Blood Pressure 127/88 H Blood Pressure Mean 101 Pulse Ox 97 Oxygen Delivery Method Room Air Room Air 04/18/22 13:18 Temperature Temperature Source Pulse Rate 76 Respiratory Rate 16 Respiratory Effort Respiratory Depth Respiratory Pattern Blood Pressure 123/74 H Blood Pressure Mean 90 Pulse Ox 97 Oxygen Delivery Method Room Air Positive well nourished and well developed General Appearance ED: well developed and NAD HEENT Reports moist mucous membranes Negative for tenderness Eyes EOMs intact bilaterally General Eye ED: Negative for pale conjunctiva or scleral icterus Neck no lymphadenopathy Neck Narrative: No stridor Resp normal respiratory effort Resp Narrative: Patient looks like she has normal respiratory effort. But she does have diffuse expiratory wheezes throughout. No rhonchi or rales are heard. No pain with a deep breath. Cardio regular rate and regular rhythm GI non-tender and non-distended Extremity normal to inspection Extremity Narrative: She still has a dressing on the right hill but it is healing well. No swelling. No cord. No asymmetry. No tenderness along deep venous system. General Extremety ED: Negative for edema or tenderness General Extremity: Negative for edema Neuro Sensorium / Orientation: alert Psych mental status grossly normal Skin Skin Narrative: See above. MDM MDM MDM Narrative Medical decision making narrative: Patient's x-ray shows some mild hyperinflation. Mild increased markings at the left lingular segment. But the patient has no sputum production. Her COVID is positive. This is likely viral in origin. But she feels well. She does have asthma and is having wheezing. I think the viral infection is likely exacerbated the asthma which is her primary issue now. We will treat this. I will write for albuterol and steroids. We discussed reasons to return and follow-up. Radiography Diagnostic Testing: Clinical Impression(s) from Imaging Studies Chest X-Ray 04/18/22 11:45 IMPRESSION: Hyperinflation. Mild degree of increased markings in the lingular segment of the left upper lobe. Follow-up is recommended. Electronically Signed: Brian Yeung MD at 12:05 EST , Discharge Plan Triage Chief Complaint: Shortness of Breath ED Provider: Ted Machado Dx/Rx/DC Orders Clinical Impression: Asthma exacerbation, COVID-19 Instructions: Coronavirus Disease 2019 (COVID-19): Caring for Yourself or Others, ED Asthma, Acute (Adult) Prescriptions: New prednisone 20 mg tablet 60 mg PO DAILY Qty: 15 0RF albuterol sulfate [Ventolin HFA] 90 mcg/actuation HFA aerosol inhaler 2 puff inhalation Q4H PRN PRN (Reason: Wheezing) Qty: 1 0RF No Action clindamycin HCl 150 mg capsule 450 mg PO TID 7 Days Qty: 63 0RF cetirizine 10 mg tablet 10 mg PO DAILY Label Comments: TAKE 1 TABLET BY MOUTH EVERY DAY Xolair 150 mg recon soln 150 mg SUBCUT QMONTH budesonide-formoterol 160-4.5 mcg/actuation HFA aerosol inhaler 1 puff INHALATION BID Label Comments: INHALE 2 PUFFS BY MOUTH TWICE DAILY DIRECTED Stand Alone Forms: ED Work / School Excuse Primary Care Provider: [facility] Doctor,Out of Referrals: [facility] Doctor,Out of [Primary Care Provider] - 3-5 Days if not improving Disposition Disposition: Home, Self Care
[2022-04-18 13:18] VITALS: BP 123/74; PULSE 76; RESP 16; O2SAT 97
[2022-04-18 14:53] VITALS: PULSE 89; RESP 20
[2022-04-18 14:57] VITALS: BP 149/81; PULSE 72; RESP 16; O2SAT 98
== END 2022-04-18 14:58 | disposition home or self-care (01) ==
PROVIDERS: Emergency Provider Emergency Medicine; Visit Provider Emergency Medicine
DX: U07.1 COVID-19 (principal); J45.901 Unspecified asthma with (acute) exacerbation; Z79.899 Other long term (current) drug therapy
CPT/HCPCS: 71046; 87428; 94640; 99283; A4216

== ENCOUNTER 2022-04-29 10:00 | Outpatient (RCR) | payer BC, SELFPAY ==
[2022-04-21 00:37] VITALS: BP 128/86; PULSE 80; RESP 18; TEMP 36.3
[2022-04-22 10:06] VITALS: BP 135/73; PULSE 77; RESP 18; TEMP 36.4
--- NOTE | 2022-04-22 14:28 | PN.PCM_ITS ---
History of Present Illness Date of Service: 04/22/22 Chief Complaint: chronic wound right hill s/p traumatic skin tear History of Wound: Hilda is a pleasant 56 yo woman that presents to the wound healing center for evaluation and treatment of a nonhealing wound of her right hill. She struck her leg against a piece of [place] and this gave her a triangular tear of her skin of her right hill on February 25, 2022. She was seen at the ER and the skin flap was approximated as best as possible to the edges and steri-stripped as stitches were not likely to hold or be helpful. She returned to the ER on 03/11/22 due to increased pain and erythema with steristrips in place and purulent drainage. ER physician removed steristrips and she was started on Clindamycin and has been dressing the wound with bacitracin and Telfa dressings. The ER referred her to the wound center for further treatment. She has recently moved from [place] to [place] and does not currently have a PCP in this area yet. 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 She does not take any medications currently. She denies fever, chills, increased drainage, erythema. History difficult due to her hearing impairment. Subjective Subjective Hilda is here to follow up for wound care. She tolerated treatment with hydrogel and adaptic. She denies increased edema, drainage or pain, fever or chills. Objective Data Objective Data Vital Signs: Vital Signs Temp Pulse Resp BP 97.6 F L 77 18 135/73 H 04/22/22 10:06 04/22/22 10:06 04/22/22 10:06 04/22/22 10:06 Physical Exam Const alert, oriented x3 and no apparent distress General Appearance: cooperative and comfortable HEENT normocephalic and head/scalp atraumatic Resp normal respiratory effort Effort and Inspection: able to speak in complete sentences Cardio regular rate and regular rhythm Skin Wounds: wounds noted Wound Narrative: as in clinical panel Psych mental status grossly normal, thought process normal, cooperative and affect normal Debridement Note Debridement Note Wound debrided: right hill Laterality: Right Type of Debridement: Excisional debridement Anesthesia Used: 4% Lidocaine Solution and 5% Lidocaine Gel Depth: Down to and including healthy tissue and in the subcutaneous layer Percentage of wound debrided: 100 Instrument Used: 7mm curette Tissue Removed: Yellow slough, devitalized tissue Severity: Fat Layer Exposed Amount of bleeding with debridement: Mild Bleeding Controlled with: Compression and gauze Patient tolerated procedure: Patient tolerated procedure well Post-Debridement Measurements and Additional Note: Post-Debridement Measurements/Treatment - Nurse 1 - General Ulcer Assessment Start: 04/22/22 10:04 Freq: Status: Active Protocol: MARTHA Activity Type Activity Date Activity User E-sign Co-sign Detail Recorded Client Recorded Date Recorded By Document 04/22/22 10:06 FAHEEM [id number] 04/22/22 10:15 RB 04/22/22 10:06 - Today's Visit Information Type of service Follow-up Visit (Physician/INTEGRATED MARKETING INTERN ) Arrival Mode Ambulatory Transfer Assistance None Patient Identification Verified (Name & Yes ) Patient Requires Transmission-Based No Precautions Vital Signs Temperature (97.8 F-99.1 F) 97.6 F L Temperature Source Temporal Pulse Rate (60-100) 77 Pulse Location Monitor Respiratory Rate (12-18) 18 Respiratory rate source Observation Blood Pressure (90/60-120/80) 135/73 H Blood Pressure Mean (mm Hg) 93 Source Monitor Position Sitting Blood Pressure Location Left Arm History Since Last Visit- (Skip if this is Patient's initial visit) Have you changed medications since your No last visit? Any new allergies or adverse reactions No Had a fall/change in ADL's that may No increase risk of falls Signs or symptoms of abuse and/or No neglect since last visit Have you been in the hospital since your No last visit? Has dressing in place as prescribed Yes Has compression in place as prescribed Yes Has offloadiing in place as prescribed No Experienced any changes in pain level or No management Pain Scale: 0-10 Numeric Is Patient Pain Free? Yes - Nurse 1 - General Ulcer Measurement Start: 04/22/22 10:04 Freq: Status: Active Protocol: Activity Type Activity Date Activity User E-sign Co-sign Detail Recorded Client Recorded Date Recorded By Document 04/22/22 10:06 FAHEEM [id number] 04/22/22 10:15 RB 04/22/22 10:06 Wound Center Nurse 1 #1 [address] [place] -Combined with other wound No -Current Size (cm) - Length 2.5 -Current Size (cm) - Width 1.5 -Current Size (cm) - Depth 0.1 -Total Square Cm 3.75 -Epithelialization Medium 34-66% -Tunneling No -Undermining/Tunneling No -Circular Undermining No -Exudate Amt Medium -Exudate Type Serosanguineous -Wound Margin Distinct, Outline Attached -Granulation Amt Medium (34-66%) -Granulation Quality [place] -Slough/Fibrin Yes -Necrosis Amt Small (1-33%) -Necrotic Tissue Type Adherent Slough -Structure Exposed N/A -Texture (Danyell-wound Skin Appearance) Assessed, Scarring -Moisture (Danyell-wound Skin Appearance) Assessed -Color (Danyell-wound Skin Appearance) Assessed -Temperature (Danyell-wound Skin No Abnormality Appearance) (Pt Warm) -Tenderness on Palpation (Danyell-wound No Skin Appearance) -Ulcer Cleansing Wound Cleanser -Foul Odor after Cleansing No -Anesthetic Used 5% Lidocaine Gel Lower Limb Edema Present Yes Right Calf (cm) 38 Right Ankle (cm) 20.8 WC - Nurse 2 - General Ulcer CM Notes Start: 04/22/22 10:04 Freq: Status: Active Protocol: Activity Type Activity Date Activity User E-sign Co-sign Detail Recorded Client Recorded Date Recorded By Document 04/22/22 10:24 MW [id number] 04/22/22 10:31 MW 04/22/22 10:24 Wound Center Nurse 2 #1 [address] [place] -Time 10:24 -Correct Patient Yes -Correct Side, Site, Position Yes -Correct Procedure Yes -Procedure Performed Yes -Type of Procedure Debridement -Clinical Debridement Subcutaneous -Tissue Removed Subcutaneous -Post Debridement (cm) - Length 1.5 -Post Debridement (cm) - Width 1.5 -Post Debridement (cm) - Depth 0.1 -Total Square (Post) (cm) 2.25 -Area of Debridement (cm) - Length 1.5 -Area of Debridement (cm) - Width 1.5 -Total Square (Area) (cm) 2.25 -Tunneling No -Undermining/Tunneling No -Circular Undermining No -Wound/Ulcer Outcome Not Healed -Ulcer Cleansing Rinsed/ Irrigated with Saline -Foul Odor after Cleansing No -Bioengineered Tissue No -Bleeding Controlled with Pressure -Treatment Response Procedure Tolerated Well -Offloading No -Debridement - Subq, 1st 20sq cm Yes Pain Scale: 0-10 Numeric Is Patient Pain Free? Yes WC - Nurse 3 - General Ulcer D/C NN Start: 04/22/22 10:04 Freq: Status: Active Protocol: Activity Type Activity Date Activity User E-sign Co-sign Detail Recorded Client Recorded Date Recorded By Document 04/22/22 10:48 [facility] [id number] 04/22/22 10:48 [facility] 04/22/22 10:48 Wound Care Nurse 3 #1 R [place] -Ulcer Cleansing Rinsed/ Irrigated with Saline -Foul Odor after Cleansing No -Primary Dressing Applied C Hydrogel ($), NonAdherent Contact Layer -Primary Dressing Covered/Secured with Dry Gauze & Roll Gauze, Secured with Tape Treatment Response Procedure Tolerated Well Pain Scale: 0-10 Numeric Is Patient Pain Free? Yes WC - Visit Discharge Discharge Condition Stable Ambulatory Status Ambulatory Transportation Private Auto Assessment/Plan Assessment/Plan (1) Cellulitis of right anterior lower leg: CODE(S): L03.115 - Cellulitis of right lower limb (2) Hearing impairment: CODE(S): H91.90 - Unspecified hearing loss, unspecified ear (3) Unspecified open wound, right lower leg, sequela: CODE(S): S81.801S - Unspecified open wound, right lower leg, sequela (4) Delayed healing of traumatic wound: CODE(S): T14.8XXD - Other injury of unspecified body region, subsequent encounter PLAN: Plan Debridement performed today in clinic as annotated above. At home wound-care instructions: Will dress her wound with Adaptic and hydrogel daily to every other day, cover with gauze and wrapped with rolled gauze and secured with tape. Keep dressing clean and dry. Compression: Tubigrip compression in single layer for mild edema. Off-loading: The patient was instructed to avoid pressure and friction on the affected areas. Reposition every 2 hours at minimum. Avoid prolonged standing and/or dangling of legs. When seated, feet should be elevated at chest level. Frequent ambulation is encouraged. Diet: Patient encouraged to increase protein intake while taking caution to avoid high carbohydrate and/or sugar intake. Labs/cultures/imaging: Follow-up: Return in 1 week for wound care follow up. Return sooner or report to the emergency room should symptoms worsen, or new symptoms arise. Note: [employer] speech recognition manager intelligence software was used to create portions of this document. Sound-alike and misspelled words, as well as other manager intelligence errors may be contained in the documentation.
[2022-04-29 10:02] VITALS: BP 159/82; PULSE 80; RESP 18; TEMP 36.8
--- NOTE | 2022-04-29 10:36 | PCM.WC.PN ---
History of Present Illness Date of Service: 04/29/22 Chief Complaint: chronic wound right hill s/p traumatic skin tear History of Wound: Hilda is a pleasant 56 yo woman that presents to the wound healing center for evaluation and treatment of a nonhealing wound of her right hill. She struck her leg against a piece of [place] and this gave her a triangular tear of her skin of her right hill on February 25, 2022. She was seen at the ER and the skin flap was approximated as best as possible to the edges and steri-stripped as stitches were not likely to hold or be helpful. She returned to the ER on 03/11/22 due to increased pain and erythema with steristrips in place and purulent drainage. ER physician removed steristrips and she was started on Clindamycin and has been dressing the wound with bacitracin and Telfa dressings. The ER referred her to the wound center for further treatment. She has recently moved from [place] to [place] and does not currently have a PCP in this area yet. 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 She does not take any medications currently. She denies fever, chills, increased drainage, erythema. History difficult due to her hearing impairment. Subjective Subjective Hilda is here to follow up for wound care. She tolerated treatment with hydrogel and adaptic. She denies increased edema, drainage or pain, fever or chills. Objective Data Objective Data Vital Signs: Vital Signs Temp Pulse Resp BP 98.2 F 80 18 159/82 H 04/29/22 10:02 04/29/22 10:02 04/29/22 10:02 04/29/22 10:02 Physical Exam Const alert, oriented x3 and no apparent distress General Appearance: cooperative and comfortable HEENT normocephalic and head/scalp atraumatic Resp normal respiratory effort Effort and Inspection: able to speak in complete sentences Cardio regular rate and regular rhythm Skin Wounds: wounds noted Wound Narrative: as in clinical panel Psych mental status grossly normal, thought process normal, cooperative and affect normal Debridement Note Debridement Note Wound debrided: right hill Laterality: Right Type of Debridement: Excisional debridement Anesthesia Used: 4% Lidocaine Solution and 5% Lidocaine Gel Depth: Down to and including healthy tissue and in the subcutaneous layer Percentage of wound debrided: 100 Instrument Used: 7mm curette Tissue Removed: Yellow slough, devitalized tissue Severity: Fat Layer Exposed Amount of bleeding with debridement: Mild Bleeding Controlled with: Compression and gauze Patient tolerated procedure: Patient tolerated procedure well Post-Debridement Measurements and Additional Note: Post-Debridement Measurements/Treatment WC - Nurse 1 - General Ulcer Assessment Start: 04/22/22 10:04 Freq: Status: Active Protocol: MARTHA Activity Type Activity Date Activity User E-sign Co-sign Detail Recorded Client Recorded Date Recorded By Document 04/22/22 10:06 RB [id number] 04/22/22 10:15 RB Document 04/29/22 10:02 DL [id number] 04/29/22 10:06 DL 04/22/22 04/29/22 10:06 10:02 WC - Today's Visit Information Type of service Follow-up Visit Follow-up Visit (Physician/FIRE PROTECTION EQUIPMENT TECHNICIAN (Physician/FIRE PROTECTION EQUIPMENT TECHNICIAN ) ) Arrival Mode Ambulatory Ambulatory Transfer Assistance None None Patient Identification Verified (Name & Yes Yes ) Patient Requires Transmission-Based No No Precautions Vital Signs Temperature (97.8 F-99.1 F) 97.6 F L 98.2 F Temperature Source Temporal Temporal Pulse Rate (60-100) 77 80 Pulse Location Monitor Monitor Respiratory Rate (12-18) 18 18 Respiratory rate source Observation Observation Blood Pressure (90/60-120/80) 135/73 H 159/82 H Blood Pressure Mean (mm Hg) 93 107 Source Monitor Monitor Position Sitting Blood Pressure Location Left Arm History Since Last Visit- (Skip if this is Patient's initial visit) Have you changed medications since your No No last visit? Any new allergies or adverse reactions No No Had a fall/change in ADL's that may No No increase risk of falls Signs or symptoms of abuse and/or No No neglect since last visit Have you been in the hospital since your No No last visit? Has dressing in place as prescribed Yes Yes Has compression in place as prescribed Yes Yes Has offloadiing in place as prescribed No N/A Experienced any changes in pain level or No No management Pain Scale: 0-10 Numeric Is Patient Pain Free? Yes Yes TAMMY Melton Nurse 1 - General Ulcer Measurement Start: 04/22/22 10:04 Freq: Status: Active Protocol: Activity Type Activity Date Activity User E-sign Co-sign Detail Recorded Client Recorded Date Recorded By Document 04/22/22 10:06 RB [id number] 04/22/22 10:15 RB Document 04/29/22 10:02 DL [id number] 04/29/22 10:06 DL 04/22/22 04/29/22 10:06 10:02 Wound Center Nurse 1 #1 [place] -Combined with other wound No -Current Size (cm) - Length 2.5 1.8 -Current Size (cm) - Width 1.5 0.9 -Current Size (cm) - Depth 0.1 0.1 -Total Square Cm 3.75 1.62 -Photo Taken No -Epithelialization Medium 34-66% -Tunneling No -Undermining/Tunneling No -Circular Undermining No -Exudate Amt Medium Small -Exudate Type Serosanguineous Serosanguineous -Wound Margin Distinct, Distinct, Outline Outline Attached Attached -Granulation Amt Medium (34-66%) Large (67-100%) -Granulation Quality [place] Red -Slough/Fibrin Yes -Necrosis Amt Small (1-33%) Small (1-33%) -Necrotic Tissue Type Adherent Slough Adherent Slough -Structure Exposed N/A -Texture (Danyell-wound Skin Appearance) Assessed, Scarring Scarring -Moisture (Danyell-wound Skin Appearance) Assessed No Abnormality -Color (Danyell-wound Skin Appearance) Assessed No Abnormality -Temperature (Danyell-wound Skin No Abnormality No Abnormality Appearance) (Pt Warm) (Pt Warm) -Tenderness on Palpation (Danyell-wound No No Skin Appearance) -Ulcer Cleansing Wound Cleanser Wound Cleanser -Foul Odor after Cleansing No No -Anesthetic Used 5% Lidocaine 5% Lidocaine Gel Gel Lower Limb Edema Present Yes Right Calf (cm) 38 37.2 Right Ankle (cm) 20.8 22.1 WC - Nurse 2 - General Ulcer CM Notes Start: 04/22/22 10:04 Freq: Status: Active Protocol: Activity Type Activity Date Activity User E-sign Co-sign Detail Recorded Client Recorded Date Recorded By Document 04/22/22 10:24 MW [id number] 04/22/22 10:31 MW Document 04/29/22 10:10 MW [id number] 04/29/22 10:15 MW 04/22/22 04/29/22 10:24 10:10 Wound Center Nurse 2 #1 [address] [place] -Time 10:24 10:10 -Correct Patient Yes Yes -Correct Side, Site, Position Yes Yes -Correct Procedure Yes Yes -Procedure Performed Yes Yes -Type of Procedure Debridement Debridement -Clinical Debridement Subcutaneous Subcutaneous -Tissue Removed Subcutaneous Subcutaneous -Post Debridement (cm) - Length 1.5 1.4 -Post Debridement (cm) - Width 1.5 0.8 -Post Debridement (cm) - Depth 0.1 0.1 -Total Square (Post) (cm) 2.25 1.12 -Area of Debridement (cm) - Length 1.5 1.4 -Area of Debridement (cm) - Width 1.5 0.8 -Total Square (Area) (cm) 2.25 1.12 -Tunneling No No -Undermining/Tunneling No No -Circular Undermining No No -Wound/Ulcer Outcome Not Healed Not Healed -Ulcer Cleansing Rinsed/ Rinsed/ Irrigated with Irrigated with Saline Saline -Foul Odor after Cleansing No No -Bioengineered Tissue No No -Bleeding Controlled with Pressure Pressure -Treatment Response Procedure Procedure Tolerated Well Tolerated Well -Offloading No No -Debridement - Subq, 1st 20sq cm Yes Yes Pain Scale: 0-10 Numeric Is Patient Pain Free? Yes Yes - Nurse 3 - General Ulcer D/C NN Start: 04/22/22 10:04 Freq: Status: Active Protocol: Activity Type Activity Date Activity User E-sign Co-sign Detail Recorded Client Recorded Date Recorded By Document 04/22/22 10:48 [facility] [id number] 04/22/22 10:48 [facility] 04/22/22 10:48 Wound Care Nurse 3 #1 R [place] -Ulcer Cleansing Rinsed/ Irrigated with Saline -Foul Odor after Cleansing No -Primary Dressing Applied C Hydrogel ($), NonAdherent Contact Layer -Primary Dressing Covered/Secured with Dry Gauze & Roll Gauze, Secured with Tape Treatment Response Procedure Tolerated Well Pain Scale: 0-10 Numeric Is Patient Pain Free? Yes - Visit Discharge Discharge Condition Stable Ambulatory Status Ambulatory Transportation Private Auto Assessment/Plan Assessment/Plan (1) Cellulitis of right anterior lower leg: CODE(S): L03.115 - Cellulitis of right lower limb (2) Hearing impairment: CODE(S): H91.90 - Unspecified hearing loss, unspecified ear (3) Unspecified open wound, right lower leg, sequela: CODE(S): S81.801S - Unspecified open wound, right lower leg, sequela (4) Delayed healing of traumatic wound: CODE(S): T14.8XXD - Other injury of unspecified body region, subsequent encounter PLAN: Plan Debridement performed today in clinic as annotated above. At home wound-care instructions: Will dress her wound with Adaptic and hydrogel daily to every other day, cover with gauze and wrapped with rolled gauze and secured with tape. Keep dressing clean and dry. Compression: Tubigrip compression in single layer for mild edema. Off-loading: The patient was instructed to avoid pressure and friction on the affected areas. Reposition every 2 hours at minimum. Avoid prolonged standing and/or dangling of legs. When seated, feet should be elevated at chest level. Frequent ambulation is encouraged. Diet: Patient encouraged to increase protein intake while taking caution to avoid high carbohydrate and/or sugar intake. Labs/cultures/imaging: Follow-up: Return in 1 week for wound care follow up. Return sooner or report to the emergency room should symptoms worsen, or new symptoms arise. Note: [employer] speech recognition yarn skeins examiner software was used to create portions of this document. Sound-alike and misspelled words, as well as other yarn skeins examiner errors may be contained in the documentation.
== END 2022-05-21 23:59 | disposition home or self-care (01) ==
LOC: WC 10:00
PROVIDERS: Visit Provider Family Medicine
DX: S81.811A Laceration without foreign body, right lower leg, initial encounter (principal); L03.115 Cellulitis of right lower limb; W22.8XXA Striking against or struck by other objects, initial encounter; H91.90 Unspecified hearing loss, unspecified ear; Z79.899 Other long term (current) drug therapy
CPT/HCPCS: 11042

== ENCOUNTER 2022-05-08 19:06 | Emergency (ER) | payer BC, SELFPAY ==
[2022-05-08 19:07] VITALS: BP 135/91; PULSE 88; RESP 16; TEMP 36.2; O2SAT 93
[2022-05-08 19:08] VITALS: BP 135/91; PULSE 88; RESP 16; TEMP 36.2; O2SAT 93; BMI 31.0
--- NOTE | 2022-05-08 19:27 | EDS_ITS ---
HPI <SHRUTHI Banks - Last Filed: 05/08/22 20:35> History of Present Illness Chief Complaint: Cough Narrative Narrative: 56-year-old female presents with 4 days of headache, dry cough, and subjective fever and chills. She was seen at urgent care yesterday and had COVID swab which is pending. They prescribed prednisone, doxycycline, and she is using albuterol and budesonide inhalers. She is concerned the symptoms are no better. She does feel short of breath with the cough but denies chest pain. No N/V/D. Denies smoking. PFSH <SHRUTHI Banks - Last Filed: 05/08/22 20:35> [facility] Medical History Asthma Home Medications clindamycin HCl 150 mg capsule 450 mg PO TID 7 days #63 caps 03/11/22 [Rx Last Taken Unknown] albuterol sulfate 90 mcg/actuation aerosol inhaler (Ventolin HFA) 2 puff inhalation Q4H PRN PRN Wheezing ##1 04/18/22 [Rx Last Taken Unknown] budesonide-formoterol HFA 160 mcg-4.5 mcg/actuation aerosol inhaler 1 puff inhalation BID 04/18/22 [History Last Taken Unknown] cetirizine 10 mg tablet 10 mg PO DAILY 04/18/22 [History Last Taken Unknown] omalizumab 150 mg subcutaneous solution (Xolair) 150 mg subcut QMONTH 04/18/22 [History Last Taken Unknown] prednisone 20 mg tablet 60 mg PO DAILY #15 tabs 04/18/22 [Rx Last Taken Unknown] Allergy/AdvReac Type Severity Reaction Status Date / Time No Known Allergies Allergy Verified 04/18/22 11:12 Social History Smoking Status: Never smoker ROS <SHRUTHI Banks - Last Filed: 05/08/22 20:35> ROS ED ROS Narrative Constitutional: Positive for fever, chills, malaise. Eyes: Negative for visual change. ENT: Negative for sore throat, ear pain, rhinorrhea. CVS: Negative for palpitations, chest pain, syncope. Respiratory: Positive for shortness of breath, cough. GI: Negative for abdominal pain, nausea, vomiting. : Negative for dysuria, hematuria or frequency. Neuro: Negative for headache, motor/sensory dysfunction. Skin: Negative for rash, abscess, or wound. Musc: Negative for joint pain, swelling, trauma. Heme: Negative for easy bruising, bleeding, lymphadenopathy. EXAM <SHRUTHI Banks - Last Filed: 05/08/22 20:35> Physical Exam Narrative Exam Narrative: CONST: Patient sitting in no acute distress. EYES: Normal inspection. ENT: Normal inspection, moist mucous membranes. NECK: Normal inspection. RESP: No respiratory distress, dry cough with expiratory wheezing. CVS: Regular rate and rhythm, no murmur, no gallop. ABD: Soft and nontender, no guarding or rebound, nondistended. SKIN: Color normal, no rash, warm, dry, intact. EXTREMITIES: Normal appearance, no pedal edema. NEURO: Oriented x4. PSYCH: Normal affect. Const Vital Signs: 05/08/22 19:08 05/08/22 19:07 05/08/22 19:27 Temperature 97.1 F L 97.1 F L Temperature Source Temporal Temporal Pulse Rate 88 88 Respiratory Rate 16 16 Respiratory Effort Normal Blood Pressure 135/91 H 135/91 H Blood Pressure Mean 105 105 Pulse Ox 93 93 Oxygen Delivery Method Room Air Room Air 05/08/22 20:34 Temperature Temperature Source Pulse Rate 82 Respiratory Rate 15 Respiratory Effort Blood Pressure Blood Pressure Mean Pulse Ox 98 Oxygen Delivery Method <Ezra Alarcon MD - Last Filed: 05/08/22 22:24> Physical Exam Const Vital Signs: 05/08/22 19:08 05/08/22 19:07 05/08/22 19:27 Temperature 97.1 F L 97.1 F L Temperature Source Temporal Temporal Pulse Rate 88 88 Respiratory Rate 16 16 Respiratory Effort Normal Blood Pressure 135/91 H 135/91 H Blood Pressure Mean 105 105 Pulse Ox 93 93 Oxygen Delivery Method Room Air Room Air 05/08/22 20:34 Temperature Temperature Source Pulse Rate 82 Respiratory Rate 15 Respiratory Effort Blood Pressure Blood Pressure Mean Pulse Ox 98 Oxygen Delivery Method [facility] <SHRUTHI Banks - Last Filed: 05/08/22 20:35> [facility] MDM Narrative Medical decision making narrative: Patient presents with upper respiratory symptoms. She appears well and nontoxic. Afebrile with normal vital signs. She does have a dry, and mild wheezing on exam and was treated with a DuoNeb and Motrin for her headache. TViral swab is positive for influenza A swab and CXR shows no acute process. She already has inhalers and prednisone from urgent care. We discussed symptomatic treatment for influenza and to continue Tylenol or Motrin at home. Return precautions were discussed and she was discharged in stable condition peer Radiography Diagnostic Testing: Clinical Impression(s) from Imaging Studies Chest X-Ray 05/08/22 19:58 IMPRESSION: Poor inspiration with some bibasilar atelectasis per Electronically Signed: Domenico Alvarado MD at 20:14 EST , ED attending interpretation of 1 view chest x-ray shows normal heart size, no acute infiltrate, edema, or effusion. <Ezra Alarcon MD - Last Filed: 05/08/22 22:24> [facility] MDM Narrative Medical decision making narrative: Patient presents with upper respiratory symptoms. She appears well and nontoxic. Afebrile with normal vital signs. She does have a dry, and mild wheezing on exam and was treated with a DuoNeb and Motrin for her headache. Viral swab is positive for influenza A swab and CXR as read by ED physician. Shows no acute process. She already has inhalers and prednisone from urgent care. We discussed symptomatic treatment for influenza and to continue Tylenol or Motrin at home. Return precautions were discussed and she was discharged in stable condition. I have personally performed a face to face assessment of the patient and have reviewed the MAURISIO Note. I performed a substantive portion of the visit including all aspects of the following. My little findings include: History is upper respiratory infection type symptoms times days Exam is afebrile. Vital signs noted. Regular rate and rhythm. Lungs clear to auscultation bilaterally. Medical Decision Making: Check chest x-ray. My interpretation shows no acute process. Check respiratory swabs. Positive for influenza A. Continue inhalers and prednisone from urgent care. Discharge. Other additions or changes: [None] Radiography Diagnostic Testing: Clinical Impression(s) from Imaging Studies Chest X-Ray 05/08/22 19:58 IMPRESSION: Poor inspiration with some bibasilar atelectasis per Electronically Signed: Domenico Alvarado MD at 20:14 EST , Discharge Plan Triage Chief Complaint: Cough ED Midlevel Provider: Simona River ED Provider: Ezra Alarcon Dx/Rx/DC Orders Clinical Impression: Influenza A Instructions: ED Influenza (Adult) Prescriptions: No Action clindamycin HCl 150 mg capsule 450 mg PO TID 7 Days Qty: 63 0RF cetirizine 10 mg tablet 10 mg PO DAILY Label Comments: TAKE 1 TABLET BY MOUTH EVERY DAY Xolair 150 mg recon soln 150 mg SUBCUT QMONTH budesonide-formoterol 160-4.5 mcg/actuation HFA aerosol inhaler 1 puff INHALATION BID Label Comments: INHALE 2 PUFFS BY MOUTH TWICE DAILY DIRECTED prednisone 20 mg tablet 60 mg PO DAILY Qty: 15 0RF albuterol sulfate [Ventolin HFA] 90 mcg/actuation HFA aerosol inhaler 2 puff inhalation Q4H PRN PRN (Reason: Wheezing) Qty: 1 0RF Stand Alone Forms: ED Work / School Excuse Primary Care Provider: Eliane Doctor,Out of Referrals: [facility] Doctor,Out of [Primary Care Provider] - Activity Restrictions/Additional Instructions: You have the flu which is a viral illness. Rest, drink fluids and take Tylenol or Motrin every 6 hours as needed. Disposition Disposition: Home, Self Care Discharge Date/Time: 05/08/22 20:35
[2022-05-08] MEDS: Ibuprofen 600 MG Tablet PO (19:41)
--- NOTE | 2022-05-08 19:58 | RAD_ITS ---
STUDY: X-RAY CHEST REASON FOR EXAM: Female, 56 years old. cough TECHNIQUE: Single AP portable view of the chest. COMPARISON: 04/18/2022 FINDINGS: Poor inspiration with some bibasilar atelectasis. There is no demonstrated pleural abnormality. Normal size heart. Normal mediastinum and cyril. Normal visualized pulmonary arteries. Normal visualized aortic arch and descending thoracic aorta. Normal visualized thoracic spine. Normal visualized ribs, clavicles, and shoulders. There is no demonstrated abnormality of the visualized soft tissue structures of the upper abdomen. RAD/Chest 1 View (Portable) IMPRESSION: Poor inspiration with some bibasilar atelectasis per Electronically Signed: Domenico Alvarado MD at 20:14 EST ,
--- NOTE | 2022-05-08 20:32 | ED.RN ---
pt requested to have Monday off as well. had already spoken with patient and told her only 3 days. she stated that manuel reid rn [id number]
[2022-05-08 20:34] VITALS: PULSE 82; RESP 15; O2SAT 98
== END 2022-05-08 20:35 | disposition home or self-care (01) ==
PROVIDERS: Emergency Provider Emergency Medicine; Visit Provider Emergency Medicine
DX: J10.1 Influenza due to other identified influenza virus with other respiratory manifestations (principal)
CPT/HCPCS: 71045; 87428; 99282

== ENCOUNTER 2022-05-20 18:13 | Emergency (ER) | payer BC, SELFPAY ==
[2022-05-20 18:14] VITALS: BP 135/83; PULSE 86; RESP 18; TEMP 36; O2SAT 97; BMI 30.4
--- NOTE | 2022-05-20 21:48 | US_ITS ---
EXAM: US right lower extremity venous Doppler. HISTORY: RT UPPER THIGH PAIN LIMITATIONS: None. THROMBUS: No thrombus within the deep veins of the right lower extremity. AUGMENTATION: Normal. FLUID COLLECTIONS: None. SUPERFICIAL VEINS: Thrombus is identified within the greater saphenous vein in the mid/distal thigh. OTHER: None. CONCLUSION: No evidence of deep venous thrombosis of the right lower extremity. Thrombus is identified within a segment of the greater saphenous vein in the mid/distal thigh. Electronically Signed: Wood Chavez MD at 22:46 EST , US/Venous Duplex Imag/Limited/Uni IMPRESSION: undefined
--- NOTE | 2022-05-20 23:33 | EX.ED.DYSGE1 ---
HPI History of Present Illness Chief Complaint: Lower Extremity Injury Narrative Narrative: Patient is 56-year-old female who reports that she has noticed some right-sided leg swelling and redness and pain over the past few days. She denies any injury fevers or chills recent surgery travel or history of DVT/PE. However because of the pain occurring with no trauma and the redness she is concerned for a blood clot and therefore comes in for evaluation [facility] Medical History Asthma Home Medications clindamycin HCl 150 mg capsule 450 mg PO TID 7 days #63 caps 03/11/22 [Rx Last Taken Unknown] albuterol sulfate 90 mcg/actuation aerosol inhaler (Ventolin HFA) 2 puff inhalation Q4H PRN PRN Wheezing ##1 04/18/22 [Rx Last Taken Unknown] budesonide-formoterol HFA 160 mcg-4.5 mcg/actuation aerosol inhaler 1 puff inhalation BID 04/18/22 [History Last Taken Unknown] cetirizine 10 mg tablet 10 mg PO DAILY 04/18/22 [History Last Taken Unknown] omalizumab 150 mg subcutaneous solution (Xolair) 150 mg subcut QMONTH 04/18/22 [History Last Taken Unknown] prednisone 20 mg tablet 60 mg PO DAILY #15 tabs 04/18/22 [Rx Last Taken Unknown] ibuprofen 600 mg tablet 600 mg PO 4X/DAY PRN PRN pain #40 tabs 05/20/22 [Rx Last Taken Unknown] Allergy/AdvReac Type Severity Reaction Status Date / Time No Known Allergies Allergy Verified 04/18/22 11:12 Social History Smoking Status: Never smoker ROS ROS ED Constitutional Constitutional ED: Denies chills or fever(s) ENT ENT ED: Denies sore throat Cardiovascular Cardiovascular: Denies chest pain or palpitations Respiratory/Chest Respiratory/Chest: Denies cough or dyspnea Gastrointestinal Gastrointestinal: Denies abdominal pain, diarrhea, nausea or vomiting Genitourinary Genitourinary ED: Denies dysuria Musculoskeletal Musculoskeletal: Reports other Details: Positive right leg pain Integumentary Reports other Details: Positive redness right thigh Neurologic Neurologic: Denies headache(s) Hematologic/Lymphatic Hematologic/Lymphatic: Denies easy bleeding or easy bruising EXAM Physical Exam Const Vital Signs: 05/20/22 18:14 Temperature 96.8 F L Temperature Source Temporal Pulse Rate 86 Respiratory Rate 18 Blood Pressure 135/83 H Blood Pressure Mean 100 Pulse Ox 97 Oxygen Delivery Method Room Air Positive well nourished and well developed General Appearance ED: well developed Eyes PERRL and EOMs intact bilaterally Neck supple Chest Wall palpation of chest normal Resp normal respiratory effort and clear to auscultation bilaterally Cardio regular rate and regular rhythm Rate: other Other Details: Radial pulses are plus 2 out of 4 bilaterally are equal and symmetric Extremity Extremity Narrative: Patient has mild asymmetric swelling to the right thigh compared to left. Along the medial aspect of the right thigh there is asymmetric redness without warmth induration or fluctuance or discharge present Negative Homans' sign bilaterally Neuro oriented x3 and CN's II-XII intact bilaterally Sensorium / Orientation: alert Psych mental status grossly normal Skin Skin Narrative: Soft tissue changes to the right thigh as documented above MDM MDM MDM Narrative Medical decision making narrative: Patient presented to the ER in no acute respiratory distress and she denied any chest pain or pleuritic chest pain and therefore had low concern for PE but with the asymmetric leg redness and swelling there is concern for blood clot. Venous duplex was obtained which showed a clot within the great saphenous vein of the medial thigh which is consistent with her physical exam. This is a superficial vein and therefore does not require anticoagulation and therefore patient is safe for discharge and symptomatic care Radiography Diagnostic Testing: Clinical Impression(s) from Imaging Studies Venous Duplex 05/20/22 21:48 IMPRESSION: undefined Discharge Plan Triage Chief Complaint: Lower Extremity Injury ED Provider: Sj Andrew Dx/Rx/DC Orders Clinical Impression: Acute superficial venous thrombosis of right lower extremity Instructions: ED Thrombophlebitis, Superficial Prescriptions: New ibuprofen 600 mg tablet 600 mg PO 4X/DAY PRN PRN (Reason: pain) Qty: 40 0RF No Action clindamycin HCl 150 mg capsule 450 mg PO TID 7 Days Qty: 63 0RF cetirizine 10 mg tablet 10 mg PO DAILY Label Comments: TAKE 1 TABLET BY MOUTH EVERY DAY Xolair 150 mg recon soln 150 mg SUBCUT QMONTH budesonide-formoterol 160-4.5 mcg/actuation HFA aerosol inhaler 1 puff INHALATION BID Label Comments: INHALE 2 PUFFS BY MOUTH TWICE DAILY DIRECTED prednisone 20 mg tablet 60 mg PO DAILY Qty: 15 0RF albuterol sulfate [Ventolin HFA] 90 mcg/actuation HFA aerosol inhaler 2 puff inhalation Q4H PRN PRN (Reason: Wheezing) Qty: 1 0RF Primary Care Provider: GINI YOUNG Referrals: GINI YOUNG [Other] Activity Restrictions/Additional Instructions: Your venous duplex today does show a blood clot in your right thigh which is the cause of your pain and redness. However the blood clot is in the superficial vein which is not connected to your deep vasculature and therefore the concern for progression to a pulmonary embolus or life-threatening complication is low and you do not require anticoagulation/blood thinner. Use warm compresses to help dissolve the clot and take the ibuprofen as directed for pain. If you have any further concerns please return to the ER for repeat evaluation Disposition Disposition: Home, Self Care
[2022-05-20 23:51] VITALS: RESP 16
== END 2022-05-20 23:52 | disposition home or self-care (01) ==
PROVIDERS: Emergency Provider Emergency Medicine; Visit Provider Emergency Medicine
DX: I82.811 Embolism and thrombosis of superficial veins of right lower extremity (principal); M79.89 Other specified soft tissue disorders; J45.909 Unspecified asthma, uncomplicated; M79.661 Pain in right lower leg
CPT/HCPCS: 93971; 99282

== ENCOUNTER 2022-05-27 09:53 | Outpatient (RCR) | payer BC, SELFPAY ==
[2022-05-22 00:29] VITALS: BP 159/82; PULSE 80; RESP 18; TEMP 36.8
[2022-05-27 09:56] VITALS: BP 134/90; PULSE 78; RESP 18; TEMP 36.1
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
== END 2022-05-30 12:40 | disposition home or self-care (01) ==
LOC: WC 09:53
PROVIDERS: Visit Provider Family Medicine
DX: S81.802A Unspecified open wound, left lower leg, initial encounter (principal); L03.115 Cellulitis of right lower limb; X58.XXXA Exposure to other specified factors, initial encounter; H91.90 Unspecified hearing loss, unspecified ear; Z79.899 Other long term (current) drug therapy
CPT/HCPCS: 99213; G0463

== ENCOUNTER 2022-08-03 07:46 | Emergency (ER) | payer BC, SELFPAY ==
[2022-08-03 07:47] VITALS: BP 137/88; PULSE 107; RESP 22; TEMP 37.2; O2SAT 93; BMI 30.4
--- NOTE | 2022-08-03 08:01 | EKG12_ITS ---
Test Reason : SOB Blood Pressure : / mmHG Vent. Rate : 096 BPM Atrial Rate : 096 BPM P-R Int : 158 ms QRS Dur : 068 ms QT Int : 348 ms P-R-T Axes : 074 020 007 degrees QTc Int : 439 ms Normal sinus rhythm Normal ECG Confirmed by MERLINE MCDERMOTT, CESAR ([id number]), general expeditor DORIE MITTAL ([id number]) on 08/05/2022 6:58:16 AM Referred By: Confirmed By:BERENICE RICK MD
--- NOTE | 2022-08-03 08:03 | EDS_ITS ---
HPI History of Present Illness Chief Complaint: Shortness of Breath Detail of Chief Complaint: Short of breath, cough, wheezing Informant: patient and family Onset/Context/Timing Onset: Days Context: Gradual Onset Narrative Narrative: Patient presents with progressive shortness of breath and cough associated with wheezing. She has had nausea. She was warm and sweaty this morning but did not check her temperature. She complains of pain along the lateral lower ribs only with cough. No anterior chest pain. She does have a history of asthma. Family states she is been under increased stress as her mother is in the hospital she has been trying to help care for her. [facility] Medical History Asthma Home Medications albuterol sulfate 90 mcg/actuation aerosol inhaler (Ventolin HFA) 2 puff inhalation Q4H PRN PRN Wheezing ##1 04/18/22 [Rx Last Taken Unknown] budesonide-formoterol HFA 160 mcg-4.5 mcg/actuation aerosol inhaler 1 puff inhalation BID 04/18/22 [History Last Taken Unknown] cetirizine 10 mg tablet 10 mg PO DAILY 04/18/22 [History Last Taken Unknown] omalizumab 150 mg subcutaneous solution (Xolair) 150 mg subcut QMONTH 04/18/22 [History Last Taken Unknown] albuterol sulfate 2.5 mg/3 mL (0.083 %) solution for nebulization 2.5 mg (3 mL) inhalation Q4H PRN #25 vials 08/03/22 [Rx Last Taken Unknown] levofloxacin 750 mg tablet 750 mg PO DAILY 4 days #4 tabs 08/03/22 [Rx Last Taken Unknown] ondansetron 4 mg disintegrating tablet 4 mg PO Q8H PRN PRN Nausea #10 tabs 08/03/22 [Rx Last Taken Unknown] prednisone 20 mg tablet 40 mg PO DAILY #8 tabs 08/03/22 [Rx Last Taken Unknown] Allergy/AdvReac Type Severity Reaction Status Date / Time No Known Allergies Allergy Verified 08/03/22 07:47 Family History Mother Heart disease Father Heart disease Brother Heart disease CVA (cerebral vascular accident) Brother Heart disease CVA (cerebral vascular accident) Brother Heart disease Other Arthritis Hypertension Osteoporosis Surgical History History of colonoscopy History of nephrectomy, left Social History Smoking Status: Never smoker alcohol intake: current alcohol intake frequency: a few times a month ROS ROS ED Constitutional Constitutional ED: Reports fever(s), subjective and sweats; Denies chills Eyes Eyes: Denies change in vision or discharge from eye(s) ENT ENT ED: Denies discharge from eye(s), rhinorrhea or sore throat Cardiovascular Cardiovascular: Denies chest pain or palpitations Respiratory/Chest Respiratory/Chest: Reports cough, dyspnea and other Details: Wheezing Gastrointestinal Gastrointestinal: Reports nausea; Denies abdominal pain, diarrhea or vomiting Musculoskeletal Musculoskeletal: Denies back pain or extremity pain Integumentary Denies Abrasions or rash Neurologic Neurologic: Reports headache(s); Denies weakness Psychiatric Psychiatric: Denies anxiety or depression Allergic/Immunologic Allergic/Immunologic ED: Denies lip swelling or urticaria EXAM Physical Exam Const Vital Signs: 08/03/22 07:47 08/03/22 08:24 08/03/22 08:24 Temperature 99 F Temperature Source Temporal Pulse Rate 107 H 99 Respiratory Rate 22 H 20 H Respiratory Effort Respiratory Pattern Tachypnea Blood Pressure 137/88 H Blood Pressure Mean 104 Pulse Ox 93 93 Oxygen Delivery Method Room Air Room Air 08/03/22 08:27 08/03/22 08:45 08/03/22 09:45 Temperature 97.8 F 99 F Temperature Source Oral Oral Pulse Rate 115 H 108 H Respiratory Rate 20 H 18 Respiratory Effort Short of Breath Respiratory Pattern Tachypnea Blood Pressure 125/74 H 114/73 Blood Pressure Mean 91 86 Pulse Ox 96 93 Oxygen Delivery Method Room Air Room Air Positive well nourished and well developed General Appearance ED: well developed HEENT Reports normocephalic and head/scalp atraumatic Eyes PERRL and EOMs intact bilaterally Neck supple Chest Wall inspection of chest normal and palpation of chest normal Resp normal respiratory effort Resp Narrative: Expiratory wheezes bilaterally. Cardio regular rate and regular rhythm GI normal to inspection, nondistended, normoactive bowel sounds Palpation: soft Back/Spine no CVA tenderness Extremity normal to inspection Neuro oriented x3 and no sensory deficits noted Sensorium / Orientation: alert Motor Exam: strength 5/5 throughout Psych mental status grossly normal Skin no rashes or lesions noted MDM MDM MDM Narrative Medical decision making narrative: Patient was given DuoNeb treatment followed by 2 albuterol treatments. She was given p.o. prednisone. Chest x-ray obtained to evaluate for acute lung pathology, cardiac size, or mediastinal abnormality. EKG obtained to evaluate for cardiac arrhythmia/ischemia. History & Record Review Discussion w/independent historian: Patient and Family Lab Data Attestation: I reviewed the patient's lab results. Labs: Laboratory Results - last 24 hr 08/03/22 08/03/22 08:45 08:45 WBC 13.9 H RBC 4.93 Hgb 15.3 H Hct 46.2 MCV 93.7 MCH 31.0 MCHC 33.1 RDW Std Deviation 44.2 H RDW Coeff of Judy 12.9 Plt Count 203 MPV 9.5 Immature Gran % (Auto) 0.300 Neut % (Auto) 79.3 H Lymph % (Auto) 10.0 L Garza % (Auto) 10.0 Eos % (Auto) 0.1 Baso % (Auto) 0.3 Absolute Neuts (auto) 11.1 H Absolute Lymphs (auto) 1.40 Nucleated RBC % 0 Sodium 138 Potassium 3.6 Chloride 102 Carbon Dioxide 27.0 Anion Gap 9 BUN 13 Creatinine 0.95 Estim Creat Clear Calc 59.69 Est GFR (MDRD) Af Amer 78 Est GFR (MDRD) Non-Af 64 BUN/Creatinine Ratio 13.7 Glucose 111 H Calcium 9.0 Radiography Chest X-Ray - ED: 1 View, Read by ED Physician and Right Infiltrate Diagnostic Testing: Clinical Impression(s) from Imaging Studies Chest X-Ray 08/03/22 08:13 IMPRESSION: Focal opacity in the right midlung which may represent round pneumonia or mass; recommend follow-up or CT. Electronically Signed: Olya Caruso MD at 8:29 EDT , Chest CT 08/03/22 08:34 IMPRESSION: 3.3 cm irregular opacity with air bronchograms in the right upper lobe, concerning for focal pneumonia in the acute setting. Recommend close short-term interval follow-up, PET-CT, or correlation with tissue diagnosis to assess for possible neoplasm. Electronically Signed: Olya Caruso MD at 9:31 EDT , EKG Initial EKG: Attestation: I personally reviewed and interpreted this EKG as follows: Interpretation: Sinus Rhythm (Sinus at 96 with no acute ischemia.) Treatment and Re-Evaluation :: Portable chest x-ray per my interpretation reveals a right-sided infiltrate. Radiology interpretation is reviewed. They do comment that it does seem to be focal and around. Secondary to this they recommend a CT scan to ensure this is not a mass. Given this, blood work is obtained along with blood cultures. CT of the chest obtained. CBC was a white count of 13.9 with 79% neutrophils. Chemistry studies are unremarkable. CT of the chest reveals a 3.3 cm opacity with air bronchograms in the right upper lobe. Patient has symptoms consistent with pneumonia. Patient does have some posttussive emesis and will be given a prescription for Zofran as well as Levaquin and prednisone. She will be given an albuterol inhaler here. She has not been hypoxic and is stable on room air. Return instructions are provided. Discharge Plan Triage Chief Complaint: Shortness of Breath ED Provider: Hillary Bailey Dx/Rx/DC Orders Clinical Impression: Pneumonia Instructions: ED Pneumonia (Adult) Prescriptions: New ondansetron 4 mg tablet,disintegrating 4 mg PO Q8H PRN PRN (Reason: Nausea) Qty: 10 0RF levofloxacin 750 mg tablet 750 mg PO DAILY 4 Days Qty: 4 0RF prednisone 20 mg tablet 40 mg PO DAILY Qty: 8 0RF albuterol sulfate 2.5 mg /3 mL (0.083 %) solution for nebulization 2.5 mg inhalation Q4H PRN Qty: 25 0RF Rx Instructions: Use q4 hours and PRN for wheezing No Action cetirizine 10 mg tablet 10 mg PO DAILY Label Comments: TAKE 1 TABLET BY MOUTH EVERY DAY Xolair 150 mg recon soln 150 mg SUBCUT QMONTH budesonide-formoterol 160-4.5 mcg/actuation HFA aerosol inhaler 1 puff INHALATION BID Label Comments: INHALE 2 PUFFS BY MOUTH TWICE DAILY DIRECTED albuterol sulfate [Ventolin HFA] 90 mcg/actuation HFA aerosol inhaler 2 puff inhalation Q4H PRN PRN (Reason: Wheezing) Qty: 1 0RF Stand Alone Forms: ED Work / School Excuse Primary Care Provider: Care Physician,No Primary Referrals: Susana Doss MD [Med Staff - Dental Laboratory Assistant] - 1-2 Weeks Care Physician,No Primary [Primary Care Provider] - Disposition Disposition: Home, Self Care
--- NOTE | 2022-08-03 08:09 | NURSING ---
NO OLD EKGS
[2022-08-03] MEDS: Albuterol 2.5 MG/3 ML VIAL.NEB. INHALATION ×2 (08:13→08:23)
[2022-08-03] MEDS: Ipratropium/Albuterol Sulfate 3 ML AMPUL.NEB INHALATION (08:13)
--- NOTE | 2022-08-03 08:13 | RAD_ITS ---
HISTORY: cough. TECHNIQUE: XR Chest 1 View. COMPARISON: 05/08/2022. FINDINGS: CARDIOMEDIASTINAL BORDERS: Cardiac silhouette within normal limits in size. Mediastinal contour unremarkable. LUNGS: 2 x 2.4 cm focal opacity in the right perihilar region. PLEURA: No pleural effusion or pneumothorax seen. 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 RAD/Chest 1 View (Portable) IMPRESSION: Focal opacity in the right midlung which may represent round pneumonia or mass; recommend follow-up or CT. Electronically Signed: Olya Caruso MD at 8:29 EDT ,
[2022-08-03 08:24] VITALS: PULSE 99; RESP 20; O2SAT 93
--- NOTE | 2022-08-03 08:34 | CT_ITS ---
HISTORY: pneumonia vs mass on CT. TECHNIQUE: Helically acquired images were obtained of the chest without contrast. A radiation dose optimization technique was used for this scan. 520 images. COMPARISON: XR same day. FINDINGS: LARGE AIRWAYS: Patent. LUNGS: 2.5 x 3.3 cm spiculated opacity with air bronchograms in the right upper lobe inferiorly adjacent to the major fissure. PLEURA: No pneumothorax or significant pleural effusion. HEART/PERICARDIUM: Heart within normal limits in size. No significant coronary artery calcification. No pericardial effusion. VESSELS: Thoracic aorta nondilated. MEDIASTINUM/SHARMAINE: Scattered small lymph nodes without pathologic enlargement. UPPER ABDOMEN: Mild hiatal hernia. BONES: Intact. CT/Chest without Contrast IMPRESSION: 3.3 cm irregular opacity with air bronchograms in the right upper lobe, concerning for focal pneumonia in the acute setting. Recommend close short-term interval follow-up, PET-CT, or correlation with tissue diagnosis to assess for possible neoplasm. Electronically Signed: Olya Caruso MD at 9:31 EDT ,
[2022-08-03] MEDS: predniSONE 20 MG Tablet 40 MG PO (08:39)
[2022-08-03 08:45] VITALS: BP 125/74; PULSE 115; RESP 20; TEMP 36.6; O2SAT 96
[2022-08-03 08:53] LABS: Absolute Neutrophil Count 11.1 X10^3/uL (2.0-7.7); Basophil# 0.04 X10^3/uL; Basophil% 0.3 % (0-1); Eosinophil# 0.02 X10^3/uL; Eosinophils% 0.1 % (0-5); Hematocrit 46.2 % (37-47); Hemoglobin 15.3 g/dL (12.0-15.0); Mean Corp Hgb Conc 33.1 g/dL (32-36); Mean Corpuscular Volume 93.7 fL (81-99); Mean Platelet Vol. 9.5 fl (6.2-12.0); Monocyte# 1.39 X10^3/uL; NRBC Flagged by Analyzer 0 % (0-5); Neutrophil # 11.05 X10^3/uL (2.7-7.7); Neutrophil % 79.3 % (47-70); Platelet Count 203 K/mm3 (150-450); RBC Distribution Width CV 12.9 % (11.6-14.6); RBC Distribution Width SD 44.2 fl (35.1-43.9); Red Blood Count 4.93 M/mm3 (4.2-5.4); White Blood Count 13.9 K/mm3 (4.4-11.0)
[2022-08-03 09:07] LABS: Anion Gap 9 (5-15); BUN 13 mg/dL (7-18); BUN/Creat Ratio 13.7 RATIO (10-20); Chloride 102 mmol/L (98-107); Creatinine, Serum 0.95 mg/dL (0.55-1.02); EST Glomerular Filtration Rate 64 mL/min (>60); Est Glom Filt Rate - Afr Amer 78 mL/min (>60); Estimated Creatinine Clearance 59.69 ml/min; Glucose 111 mg/dL (74-106); Potassium 3.6 mmol/L (3.5-5.1); Sodium Level 138 mmol/L (136-145)
[2022-08-03 09:45] VITALS: BP 114/73; PULSE 108; RESP 18; TEMP 37.2; O2SAT 93
[2022-08-03 10:27] VITALS: BP 113/80; PULSE 106; RESP 20; O2SAT 93
[2022-08-03] MEDS: levoFLOXacin 750 MG Tablet PO (10:27)
[2022-08-03] MEDS: Albuterol Sulfate 8 gm Inhaler (60 puffs) 2 PUFF INHALATION (10:32)
== END 2022-08-03 10:39 | disposition home or self-care (01) ==
PROVIDERS: Emergency Provider Emergency Medicine; Visit Provider Emergency Medicine
DX: J18.9 Pneumonia, unspecified organism (principal)
CPT/HCPCS: 71045; 71250; 80048; 85025; 87040; 87428; 93005; 94640; 99284; A4216

== ENCOUNTER 2023-07-01 15:54 | Emergency (ER) | payer BC, SELFPAY ==
[2023-07-01 16:01] VITALS: BP 142/74; PULSE 92; RESP 18; TEMP 36.6; O2SAT 98; BMI 27.8
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
--- OUTSIDE RECORDS SUMMARY | 2023-07-01 17:24 | XMS RPT_ITS | CCD ---
Author Name Unknown Address [address] [place] [address] Organization [facility] Care Team Providers Care Stadium Attendant Name Role Phone MACY MORENO Unavailable Unavailable MACY MORENO Unavailable Unavailable JAZMINE, SERINA Unavailable Unavailable Andrae Villa Attending Unavailable Sangita Hector, Bentley Referring Unavailable Sangita Hector, Bentley Primary Care Unavailable Sangita Hector, Bentley Attending Unavailable Sangita Hector, Bentley Referring Unavailable Sangita Hector, Bentley Primary Care Unavailable Sangita Hector, Bentley Attending Unavailable Sangita Hector, Bentley Referring Unavailable Sangita Hector, Bentley Primary Care Unavailable Sangita Hector, Bentley Attending Unavailable Sangita Hector, Bentley Referring Unavailable Sangita Hector, Bentley Primary Care Unavailable Estelle Del Castillo Attending Unavailable Sangita Hector, Bentley Referring Unavailable Sangita Hector, Bentley Primary Care Unavailable Sangita Hector, Bentley Referring Unavailable Sangita Hector, Bentley Primary Care Unavailable Zack Rao Attending Unavailable Sangita Hector, Bentley Primary Care Provider Sangita Hector, Bentley Primary Care Provider [phone] Sangita Hector, Bentley Primary Care Provider [phone] Sangita Roberts MD, Bentley Primary Care Provider [phone] Hector, Bentley Sangita Primary Care Provider Unava ilable Hector, Bentley Sangita Primary Care Provider Unava ilable Hector, Bentley Sangita Primary Care Provider Unava ilable [facility] Unava ilable Ditchey DO, Simona Primary Care Provider PROVIDER, UNKNOWN Referring Unavailable HECTOR, BENTLEY SANGITA Primary Care Unavailable HECTOR, BENTLEY SANGITA Primary Care Unavailable PROVIDER, UNKNOWN Referring Unavailable LLOYD CHRISTENSEN DO Attending Unavailab le HECTOR, BENTLEY SANGITA Primary Care Unavailable Martinez DO, Simona Primary Care Provider [phone] GUIDOLONNIE, SIMONA Primary Care Unavailable KATIE BANG Attending Unavailable KATIE BANG Attending Unavailable DITCHEY, SIMONA Primary Care Unavailable Reji MCDERMOTT, Obdulia Primary Care Provider HECTOR, BENTLEY SANGITA Primary Care Unavailable WESTLEY BYRD Referring Unavailable DANE HAN Attending Unavailable HECTOR, BENTLEY SANGITA Primary Care Unavailable FALTAY, OLIVERIO B Referring Unavailable HECTOR, BENTLEY SANGITA Primary Care Unavailable HECTOR, BENTLEY SANGITA Primary Care Unavailable FALTAY, OLIVERIO B Referring Unavailable HECTOR, BENTLEY SANGITA Primary Care Unavailable FALTAY, OLIVERIO B Referring Unavailable HECTOR, BENTLEY SANGITA Primary Care Unavailable FALTAY, OLIVERIO B Referring Unavailable HECTOR, BENTLEY SANGITA Primary Care Unavailable OBDULIA PATINO Attending Unavailable HECTOR, EBNTLEY SANGITA Primary Care Unavailable HECTOR, BENTLEY SANGITA Primary Care Unavailable FALTAY, OLIVERIO B Referring Unavailable HECTOR, BENTLEY SANGITA Primary Care Unavailable FALTAY, OLIVERIO B Referring Unavailable HECTOR, BENTLEY SANGITA Primary Care Unavailable FALTAY, OLIVERIO B Referring Unavailable HECTOR, BENTLEY SANGITA Primary Care Unavailable HECTOR, BENTLEY SANGITA Primary Care Unavailable HECTOR, BENTLEY SANGITA Primary Care Unavailable HECTOR, BENTLEY SANGITA Primary Care Unavailable HECTOR, BENTLEY SANGITA Primary Care Unavailable HECTOR, BENTLEY SANGITA Primary Care Unavailable LLOYD REESE Attending Unavailable HECTOR, BENTLEY SANGITA Referring Unavailable HECTOR, BENTLEY SANGITA Primary Care Unavailable HECTOR, BENTLEY SANGITA Primary Care Unavailable Allergies Allergy Classification Reported Allergen(s) Allergy Type Date of Onset Reaction(s) Facility Gadolinium (1 source) Gadolinium Drug Allergy 7 Other (See Comments) [facility] (12 sources) Gadolinium Propensity to adverse reactions to drug 7 Other (See Comments) [facility] [place], [place] (20 sources) Gadolinium-Cont aining Contrast Media; Translations: [GADOLINIUM-CON TAINING CONTRAST MEDIA] Propensity to adverse reactions to drug 7 Unknown [facility] Medications Current Medications Medication Drug Class(es) Dates Sig (Normalized) Sig (Original) albuterol 0.83 mg/ml inhalation solution (20 sources) beta2-Adrenergic Agonist Start: 06-28-2023 End: 09-26-2023 take 3 mL by inhalation three times daily as needed for wheezing albuterol (PROVENTIL) 2.5 mg /3 mL (0.083 %) nebulizer solution Indications: Severe persistent asthma without complication Use 3 mL via nebulizer three times a day as needed for wheezing/shortness of breath. Inhale over 5-15 minutes 60 mL 1 06/28/2023 09/26/2023 Active Completed/Discontinued Medications Medication Drug Class(es) Dates Sig (Normalized) Sig (Original) benzonatate 100 mg oral capsule (2 sources) Non-narcotic Antitussive Start: 06-16-2023 take 2 capsules by mouth every eight hours as needed benzonatate (TESSALON PERLES) 100 mg capsule Take 2 capsules by mouth three times a day as needed. 30 capsule 0 06/16/2023 Active Problems Active Problems Problem Classification Problem Date Documented Da te Episodic/Chronic Administrative/social admission (1 source) Person with feared health complaint in whom no diagnosis is made; Translations: [Feared condition not demonstrated] Onset: 01-28-2023 Episodic Asthma (20 sources) Unspecified asthma, uncomplicated; Translations: [Severe persistent asthma] Onset: 02-19-2015 03-08-2016 Chronic Cancer of kidney and renal pelvis (20 sources) Malignant tumor of kidney; Translations: [Malignant neoplasm of unspecified kidney, except renal pelvis] Onset: 02-05-2019 02-05-2019 Chronic Disorders usually diagnosed in infancy childhood or adolescence (15 sources) Stereotyped routines; 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] Onset: 06-16-2015 06-16-2015 Chronic Diverticulosis and diverticulitis (5 sources) Diverticulosis of large intestine; Translations: [Diverticulosis of large intestine without perforation or abscess without bleeding] Onset: 02-19-2015 02-19-2015 Chronic Diverticulosis and diverticulitis (12 sources) Diverticulosis of large intestine; Translations: [Diverticulosis of large intestine] 02-19-2015 E Codes: Natural/environment (2 sources) Repetitive motion disorder; Translations: [Overexertion from DATE CREATED AUTHOR AUTHOR'S ORGANIZ ATION 09/26/2020 [facility] DATE CREATED AUTHOR AUTHOR'S ORGANIZ ATION 04/28/2021 [facility] DATE CREATED AUTHOR AUTHOR'S ORGANIZ ATION 03/20/2023 [facility] DATE CREATED AUTHOR AUTHOR'S ORGANIZ ATION 06/13/2023 [facility] DATE CREATED AUTHOR AUTHOR'S ORGANIZ ATION 06/26/2023 [facility] Source Comments (unrecognize d section and content) In the event this informatio n is protected by the Federal Confidentiality of Alcohol and Drug Abuse Patient Records regulations: The Federal rules restrict any use of the information to criminally investigate or prosecute any alcohol or drug abuse patient.[facility] the event this information is protected by the Federal Confidentiality of Alcohol and Drug Abuse Patient Records regulations: The Federal rules restrict any use of the information to criminally investigate or prosecute any alcohol or drug abuse patient.[facility]In the event this information is protected by the Federal Confidentiality of Alcohol and Drug Abuse Patient Records regulations: The Federal rules restrict any use of the information to criminally investigate or prosecute any alcohol or drug abuse patient.[facility]In the event this information is protected by the Federal Confidentiality of Alcohol and Drug Abuse Patient Records regulations: The Federal rules restrict any use of the information to criminally investigate or prosecute any alcohol or drug abuse patient.[facility] HospitalIn the event this information is protected by the Federal Confidentiality of Alcohol and Drug Abuse Patient Records regulations: The Federal rules restrict any use of the information to criminally investigate or prosecute any alcohol or drug abuse patient.[facility] HospitalIn the event this information is protected by the Federal Confidentiality of Alcohol and Drug Abuse Patient Records regulations: The Federal rules restrict any use of the information to criminally investigate or prosecute any alcohol or drug abuse patient.[facility] HospitalIn the event this information is protected by the Federal Confidentiality of Alcohol and Drug Abuse Patient Records regulations: The Federal rules restrict any use of the information to criminally investigate or prosecute any alcohol or drug abuse patient.[facility] HospitalIn the event this information is protected by the Federal Confidentiality of Alcohol and Drug Abuse Patient Records regulations: The Federal rules restrict any use of the information to criminally investigate or prosecute any alcohol or drug abuse patient.[facility] HospitalIn the event this information is protected by the Federal Confidentiality of Alcohol and Drug Abuse Patient Records regulations: The Federal rules restrict any use of the information to criminally investigate or prosecute any alcohol or drug abuse patient.[facility] HospitalIn the event this information is protected by the Federal Confidentiality of Alcohol and Drug Abuse Patient Records regulations: The Federal rules restrict any use of the information to criminally investigate or prosecute any alcohol or drug abuse patient.[facility] HospitalIn the event this information is protected by the Federal Confidentiality of Alcohol and Drug Abuse Patient Records regulations: The Federal rules restrict any use of the information to criminally investigate or prosecute any alcohol or drug abuse patient.[facility] HospitalIn the event this information is protected by the Federal Confidentiality of Alcohol and Drug Abuse Patient Records regulations: The Federal rules restrict any use of the information to criminally investigate or prosecute any alcohol or drug abuse patient.[facility] HospitalIn the event this information is protected by the Federal Confidentiality of Alcohol and Drug Abuse Patient Records regulations: The Federal rules restrict any use of the information to criminally investigate or prosecute any alcohol or drug abuse patient.[facility] HospitalIn the event this information is protected by the Federal Confidentiality of Alcohol and Drug Abuse Patient Records regulations: The Federal rules restrict any use of the information to criminally investigate or prosecute any alcohol or drug abuse patient.[facility] HospitalIn the event this information is protected by the Federal Confidentiality of Alcohol and Drug Abuse Patient Records regulations: The Federal rules restrict any use of the information to criminally investigate or prosecute any alcohol or drug abuse patient.[facility] HospitalIn the event this information is protected by the Federal Confidentiality of Alcohol and Drug Abuse Patient Records regulations: The Federal rules restrict any use of the information to criminally investigate or prosecute any alcohol or drug abuse patient.[facility] HospitalIn the event this information is protected by the Federal Confidentiality of Alcohol and Drug Abuse Patient Records regulations: The Federal rules restrict any use of the information to criminally investigate or prosecute any alcohol or drug abuse patient.[facility] HospitalIn the event this information is protected by the Federal Confidentiality of Alcohol and Drug Abuse Patient Records regulations: The Federal rules restrict any use of the information to criminally investigate or prosecute any alcohol or drug abuse patient.[facility] HospitalIn the event this information is protected by the Federal Confidentiality of Alcohol and Drug Abuse Patient Records regulations: The Federal rules restrict any use of the information to criminally investigate or prosecute any alcohol or drug abuse patient.[facility] HospitalIn the event this information is protected by the Federal Confidentiality of Alcohol and Drug Abuse Patient Records regulations: The Federal rules restrict any use of the information to criminally investigate or prosecute any alcohol or drug abuse patient.[facility] HospitalIn the event this information is protected by the Federal Confidentiality of Alcohol and Drug Abuse Patient Records regulations: The Federal rules restrict any use of the information to criminally investigate or prosecute any alcohol or drug abuse patient.[facility] HospitalIn the event this information is protected by the Federal Confidentiality of Alcohol and Drug Abuse Patient Records regulations: The Federal rules restrict any use of the information to criminally investigate or prosecute any alcohol or drug abuse patient.[facility] HospitalIn the event this information is protected by the Federal Confidentiality of Alcohol and Drug Abuse Patient Records regulations: The Federal rules restrict any use of the information to criminally investigate or prosecute any alcohol or drug abuse patient.[facility] HospitalIn the event this information is protected by the Federal Confidentiality of Alcohol and Drug Abuse Patient Records regulations: The Federal rules restrict any use of the information to criminally investigate or prosecute any alcohol or drug abuse patient.[facility] HospitalIn the event this information is protected by the Federal Confidentiality of Alcohol and Drug Abuse Patient Records regulations: The Federal rules restrict any use of the information to criminally investigate or prosecute any alcohol or drug abuse patient.[facility] HospitalIn the event this information is protected by the Federal Confidentiality of Alcohol and Drug Abuse Patient Records regulations: The Federal rules restrict any use of the information to criminally investigate or prosecute any alcohol or drug abuse patient.[facility] HospitalIn the event this information is protected by the Federal Confidentiality of Alcohol and Drug Abuse Patient Records regulations: The Federal rules restrict any use of the information to criminally investigate or prosecute any alcohol or drug abuse patient.[facility] HospitalIn the event this information is protected by the Federal Confidentiality of Alcohol and Drug Abuse Patient Records regulations: The Federal rules restrict any use of the information to criminally investigate or prosecute any alcohol or drug abuse patient.[facility] HospitalIn the event this information is protected by the Federal Confidentiality of Alcohol and Drug Abuse Patient Records regulations: The Federal rules restrict any use of the information to criminally investigate or prosecute any alcohol or drug abuse patient.[facility] HospitalIn the event this information is protected by the Federal Confidentiality of Alcohol and Drug Abuse Patient Records regulations: The Federal rules restrict any use of the information to criminally investigate or prosecute any alcohol or drug abuse patient.[facility] HospitalIn the event this information is protected by the Federal Confidentiality of Alcohol and Drug Abuse Patient Records regulations: The Federal rules restrict any use of the information to criminally investigate or prosecute any alcohol or drug abuse patient.[facility] HospitalIn the event this information is protected by the Federal Confidentiality of Alcohol and Drug Abuse Patient Records regulations: The Federal rules restrict any use of the information to criminally investigate or prosecute any alcohol or drug abuse patient.[facility] HospitalIn the event this information is protected by the Federal Confidentiality of Alcohol and Drug Abuse Patient Records regulations: The Federal rules restrict any use of the information to criminally investigate or prosecute any alcohol or drug abuse patient.[facility] HospitalIn the event this information is protected by the Federal Confidentiality of Alcohol and Drug Abuse Patient Records regulations: The Federal rules restrict any use of the information to criminally investigate or prosecute any alcohol or drug abuse patient.[facility] HospitalIn the event this information is protected by the Federal Confidentiality of Alcohol and Drug Abuse Patient Records regulations: The Federal rules restrict any use of the information to criminally investigate or prosecute any alcohol or drug abuse patient.[facility] HospitalIn the event this information is protected by the Federal Confidentiality of Alcohol and Drug Abuse Patient Records regulations: The Federal rules restrict any use of the information to criminally investigate or prosecute any alcohol or drug abuse patient.[facility] HospitalIn the event this information is protected by the Federal Confidentiality of Alcohol and Drug Abuse Patient Records regulations: The Federal rules restrict any use of the information to criminally investigate or prosecute any alcohol or drug abuse patient.[facility] HospitalIn the event this information is protected by the Federal Confidentiality of Alcohol and Drug Abuse Patient Records regulations: The Federal rules restrict any use of the information to criminally investigate or prosecute any alcohol or drug abuse patient.[facility] HospitalIn the event this information is protected by the Federal Confidentiality of Alcohol and Drug Abuse Patient Records regulations: The Federal rules restrict any use of the information to criminally investigate or prosecute any alcohol or drug abuse patient.[facility] HospitalIn the event this information is protected by the Federal Confidentiality of Alcohol and Drug Abuse Patient Records regulations: The Federal rules restrict any use of the information to criminally investigate or prosecute any alcohol or drug abuse patient.[facility] HospitalIn the event this information is protected by the Federal Confidentiality of Alcohol and Drug Abuse Patient Records regulations: The Federal rules restrict any use of the information to criminally investigate or prosecute any alcohol or drug abuse patient.[facility] HospitalIn the event this information is protected by the Federal Confidentiality of Alcohol and Drug Abuse Patient Records regulations: The Federal rules restrict any use of the information to criminally investigate or prosecute any alcohol or drug abuse patient.[facility] HospitalIn the event this information is protected by the Federal Confidentiality of Alcohol and Drug Abuse Patient Records regulations: The Federal rules restrict any use of the information to criminally investigate or prosecute any alcohol or drug abuse patient.[facility] HospitalIn the event this information is protected by the Federal Confidentiality of Alcohol and Drug Abuse Patient Records regulations: The Federal rules restrict any use of the information to criminally investigate or prosecute any alcohol or drug abuse patient.[facility] HospitalIn the event this information is protected by the Federal Confidentiality of Alcohol and Drug Abuse Patient Records regulations: The Federal rules restrict any use of the information to criminally investigate or prosecute any alcohol or drug abuse patient.[facility] HospitalIn the event this information is protected by the Federal Confidentiality of Alcohol and Drug Abuse Patient Records regulations: The Federal rules restrict any use of the information to criminally investigate or prosecute any alcohol or drug abuse patient.[facility] HospitalIn the event this information is protected by the Federal Confidentiality of Alcohol and Drug Abuse Patient Records regulations: The Federal rules restrict any use of the information to criminally investigate or prosecute any alcohol or drug abuse patient.[facility] HospitalIn the event this information is protected by the Federal Confidentiality of Alcohol and Drug Abuse Patient Records regulations: The Federal rules restrict any use of the information to criminally investigate or prosecute any alcohol or drug abuse patient.[facility] HospitalIn the event this information is protected by the Federal Confidentiality of Alcohol and Drug Abuse Patient Records regulations: The Federal rules restrict any use of the information to criminally investigate or prosecute any alcohol or drug abuse patient.[facility] HospitalIn the event this information is protected by the Federal Confidentiality of Alcohol and Drug Abuse Patient Records regulations: The Federal rules restrict any use of the information to criminally investigate or prosecute any alcohol or drug abuse patient.[facility] HospitalIn the event this information is protected by the Federal Confidentiality of Alcohol and Drug Abuse Patient Records regulations: The Federal rules restrict any use of the information to criminally investigate or prosecute any alcohol or drug abuse patient.[facility] HospitalIn the event this information is protected by the Federal Confidentiality of Alcohol and Drug Abuse Patient Records regulations: The Federal rules restrict any use of the information to criminally investigate or prosecute any alcohol or drug abuse patient.[facility] HospitalIn the event this information is protected by the Federal Confidentiality of Alcohol and Drug Abuse Patient Records regulations: The Federal rules restrict any use of the information to criminally investigate or prosecute any alcohol or drug abuse patient.[facility] HospitalIn the event this information is protected by the Federal Confidentiality of Alcohol and Drug Abuse Patient Records regulations: The Federal rules restrict any use of the information to criminally investigate or prosecute any alcohol or drug abuse patient.[facility] Care Teams (unrecognized sec tion and content) 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 Specialty Start Date End Date Hector, Betnley Sangita PCP - General Family Practice 04/06/17 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 Specialty Start Date End Date Hector, Bentley Sangita PCP - General Family Practice 04/06/17 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 Specialty Start Date End Date Hector, Bentley Sangita PCP - General Family Practice 04/06/17 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 Specialty Start Date End Date Hector, Bentley Sangita PCP - General Family Practice 04/06/17 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 Specialty Start Date End Date Hector, Bentley Sangita PCP - General Family Practice 04/06/17 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 Specialty Start Date End Date Hector, Bentley Sangita PCP - General Family Practice 04/06/17 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 Specialty Start Date End Date Hector, Bentley Sangita PCP - General Family Practice 04/06/17 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 Specialty Start Date End Date Hector, Bentley Sangita PCP - General Family Practice 04/06/17 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 Specialty Start Date End Date Hector, Bentley Sangita PCP - General Family Practice 04/06/17 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 Specialty Start Date End Date Hector, Bentley Sangita PCP - General Family Practice 04/06/17 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 Specialty Start Date End Date Hector, Bentley Sangita PCP - General Family Practice 04/06/17 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 Specialty Start Date End Date Hector, Bentley Sangita PCP - General Family Medicine 04/06/17 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 Specialty Start Date End Date Bentley Callejasatt PCP - General Family Medicine 04/06/17 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 Specialty Start Date End Date Bentley Quesada PCP - General Family Medicine 04/06/17 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 Specialty Start Date End Date Hector Bentley Quesada PCP - General Family Medicine 04/06/17 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 Specialty Start Date End Date Bentley Sangita PCP - General Family Medicine 04/06/17 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 Specialty Start Date End Date Bentley Sangita PCP - General Family Medicine 04/06/17 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 Specialty Start Date End Date Bentley Quesada PCP - General Family Medicine 04/06/17 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 Specialty Start Date End Date Bentley Sangita PCP - General Family Medicine 04/06/17 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 Specialty Start Date End Date Bentley Sangita PCP - General Family Medicine 04/06/17 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 Specialty Start Date End Date Simona Henriquez, DO [address] [place] [address] PCP - General Family Medicine 05/10/22 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 Specialty Start Date End Date HectorLisandroal Sangita PCP - General Family Medicine 04/06/17 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 Specialty Start Date End Date Hector Bentley Sangita PCP - General Family Medicine 04/06/17 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 Specialty Start Date End Date HectorBentley PCP - General Family Medicine 04/06/17 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 Specialty Start Date End Date HectorBentleyatt PCP - General Family Medicine 04/06/17 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 Specialty Start Date End Date HectorBentleyatt PCP - General Family Medicine 04/06/17 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 Specialty Start Date End Date HectorBentleyatt PCP - General Family Medicine 04/06/17 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 Specialty Start Date End Date HectorBentley PCP - General Family Medicine 04/06/17 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 Specialty Start Date End Date Bentley Roberts PCP - General Family Medicine 04/06/17 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 Specialty Start Date End Date GuidolonnieTiaraaDO [address] [place] [address] PCP - General Family Medicine 05/10/22 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 Specialty Start Date End Date Obdulia Patino MD [address] [place] [address] PCP - General Internal Medicine 06/20/23 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 Specialty Start Date End Date Obdulia Patino MD [address] [place] [address] PCP - General Internal Medicine 06/20/23 Reason for Visit (unrecogniz ed section and content) Reason Comments Insurance Authorization [employer] Reason Comments Pain Reason Comments Asthma Reason Comments Pain Reason Comments Medication Authorization Prior Authoriza tion [employer] Reason Comments Appointment Cancelled Reason Onset Date Comments Refill Request 11/11/2021 Reason Onset Date Comments Refill Request 01/06/2022 Reason Comments Appointment Reason Comments Medication Problem [employer] delivery, sarah l request from pharmacy before delivery can be completed Reason Comments Information Reason Comments Asthma Follow Up Reason Comments Refill Request Reason Onset Date Comments Cough 08/02/2022 Reason Onset Date Comments Refill Request 08/02/2022 Reason Comments Medication Problem Reason Comments Patient Update [employer] shipment Reason Comments Throat Problem Reason Comments Speech Instrumental Swallow Eval Speech Discharge Specialty Diagnoses / Procedures Referred By Contac t Referred To Contact XR IMAGING Diagnoses Oropharyngeal dysphagia Procedures XR MODIFIED BARIUM SWALLOW W SPEECH THERAPY RADIOLOGIC EXAM SWALLOW FUNCTION CONTRAST STUDY Lloyd Reese MD [address] [place] [address] [place] [id number] Referral ID Status Reason Start Date Expiration Date V isits Requested Visits Authorized [id number] Closed Auto-Generate d Referral 01/27/2023 02/26/2024 1 1 Reason Comments Med Refill Reason Comments Clinical Update FOR RECORDS PERTAINING TO PATIENTS WHO ARE OR HAVE BEEN ENROLLED IN A CHEMICAL DEPENDENCY/SUBSTANCEABUSE PROGRAM, SOME INFORMATION MAY BE OMITTED. This clinical summary was aggregated from multiple sources. Caution should be exercised in using it in the provision of clinical care. This summary normalizes information from multiple sources, and as a consequence, information in this document may materially change the coding, format and clinical context of patient data. In addition, data may be omitted in some cases. CLINICAL DECISIONS SHOULD BE BASED ON THE PRIMARY CLINICAL RECORDS. [facility] [employer] [facility]. provides no warranty or guarantee of the accuracy or completeness of information in this document.
--- NOTE | 2023-07-01 17:40 | RAD_ITS ---
INDICATION: Trauma, lower back pain EXAMINATION/TECHNIQUE: X-RAY - XR Spine Lumbar 2 or 3 Views COMPARISON: None. FINDINGS: VERTEBRAE: Preserved vertebral body height. No acute fracture. No spondylolisthesis. Preservation of the normal lumbar lordosis. DISCS: Degenerative disc space loss at L5-S1. INCLUDED ABDOMEN: Included bowel gas pattern is non-obstructive. RAD/Lumbar Spine 2 or 3 Views IMPRESSION: Degenerative disc disease without acute bony abnormality. Electronically Signed: Rip Bee MD at 18:32 EST ,
--- NOTE | 2023-07-01 17:40 | RAD_ITS ---
INDICATION: back pain EXAMINATION/TECHNIQUE: X-RAY - XR Sacrum/Coccyx Min 2 Views COMPARISON: Lumbosacral spine series same date FINDINGS: SACRUM/COCCYX: No displaced fracture, destructive or sclerotic lesions. Note that overlapping bowel shadows may however obscure fine detail in the frontal view. SACRO-ILIAC JOINTS: The articular structures are unremarkable. SOFT TISSUES: No soft tissue swelling or gas. RAD/Sacrum-Coccyx min 2 Views IMPRESSION: Unremarkable sacro-coccygeal spine. Electronically Signed: Rip Bee MD at 18:34 EST ,
[2023-07-01] MEDS: Acetaminophen 500 MG Tablet 1000 MG PO (18:04)
[2023-07-01 19:25] VITALS: BP 137/74; RESP 78; O2SAT 100
== END 2023-07-01 19:27 | disposition home or self-care (01) ==
PROVIDERS: Emergency Provider Student in an Organized Health Care Education/Training Program; Visit Provider Student in an Organized Health Care Education/Training Program
DX: S00.83XA Contusion of other part of head, initial encounter (principal); S30.0XXA Contusion of lower back and pelvis, initial encounter; S51.012A Laceration without foreign body of left elbow, initial encounter; Y04.8XXA Assault by other bodily force, initial encounter; Y92.129 Unspecified place in nursing home as the place of occurrence of the external cause; Y93.89 Activity, other specified; Y99.8 Other external cause status
CPT/HCPCS: 70450; 70486; 72100; 72220; 99282